=== PATIENT | female | born 1935 | race Caucasian/White ===

== ENCOUNTER 2018-08-31 16:54 | Inpatient (IN) | payer BC, MEDICARE ==
[~2018-08-31] VITALS: Ht 162.6 cm; Wt 70.3 kg
--- NOTE | 2018-08-31 17:22 | PHYS DOC ---
Past History Past Medical History: Anxiety, Hypothyroid Additional Past Surgical Histo: cochlear implant Smoking: Non-smoker Alcohol Use: None Drug Use: None Adult General Chief Complaint Chief Complaint: PSYCH EVALUATION HPI HPI Patient is a 83-year-old female here for medical clearance due to change in behavior over the past 6 months. Increasingly fearful during that time. Over the past month or so she is started hearing voices telling her to strep off all of her clothes and lay on the floor, where her finds her face down. There is no suicidal or homicidal ideation. The voices are not telling her to hurt herself or anyone else. There has been no recent changes in medications. Patient does have a history of anxiety. She also has had waxing and waning headaches during these past 6 months without any previous imaging. She usually takes Tylenol to help with these headaches. She reports her most recent headache started on the car ride to the hospital. There has been no change in vision, no nausea or vomiting with these headaches.[] Review of Systems Review of Systems Constitutional: Denies fever or chills [] Eyes: Denies change in visual acuity, redness, or eye pain [] HENT: Denies nasal congestion or sore throat [] Respiratory: Denies cough or shortness of breath [] Cardiovascular: No chest pain or palpitations[] GI: Denies abdominal pain, nausea, vomiting, bloody stools or diarrhea [] : Denies dysuria or hematuria [] Musculoskeletal: Denies back pain or joint pain [] Integument: Denies rash or skin lesions [] Neurologic: Denies focal weakness or sensory changes [] Endocrine: Denies polyuria or polydipsia [] All other systems were reviewed and found to be within normal limits, except as documented in this note. Physical Exam Physical Exam Constitutional: Well developed, well nourished, no acute distress, non-toxic appearance. [] HENT: Normocephalic, atraumatic, bilateral external ears normal, oropharynx moist, no oral exudates, nose normal. [] Eyes: PERRLA, EOMI, conjunctiva normal, no discharge. [] Neck: Normal range of motion, no tenderness, supple, no stridor. [] Cardiovascular:Heart rate regular rhythm, no murmur [] Lungs & Thorax: Bilateral breath sounds clear to auscultation [] Abdomen: Bowel sounds normal, soft, no tenderness, no masses, no pulsatile masses. [] Skin: Warm, dry, no erythema, no rash. [] Back: No tenderness, no CVA tenderness. [] Extremities: No tenderness, no cyanosis, no clubbing, ROM intact, no edema. [] Neurologic: Alert and oriented X 3, normal motor function, normal sensory function, no focal deficits noted. [] Psychologic: Affect flat, mood normal. [] EKG EKG EKG shows a sinus rhythm at 59 bpm, right superior axis at -172, QTC 410 ms, no old EKG available for comparison, no ST elevations, interpreted by me at 1725.[] Radiology/Procedures Radiology/Procedures INDICATION: HEADACHE, ALTERED MENTAL STATUS COMPARISON: None. TECHNIQUE: Axial CT images obtained through the head. One or more of the following individualized dose reduction techniques were utilized for this examination: 1. Automated exposure control; 2. Adjustment of the mA and/or kV according to patient size; 3. Use of iterative reconstruction technique. FINDINGS: Large amount of artifact through the brain secondary to patient's implanted device. This makes portions of the brain nondiagnostic. No midline shift. Suprasellar cistern is not effaced. Ventricles and sulci are prominent which can be seen with age-related volume loss. Scattered foci of low density of white matter. A definite hemorrhage is not seen however portions the brain are not visualized. IMPRESSION: 1. Portions of the brain are obscured secondary to the patient's implantable device at left ear however a definite acute hemorrhage is not seen in visualized portions. 2. Low-density seen within the white matter. Nonspecific but can be seen with chronic small vessel ischemic disease.[] Course & Med Decision Making Course & Med Decision Making Pertinent Labs and Imaging studies reviewed. (See chart for details) ED course: Patient arrived, was placed in bed, and tolerated exam well. Explained to patient and family that we were doing medical clearance for patient to be able to be cared for in [facility]. They understood this. Patient was transported to and from [place] with any complications. Patient care endorsed to the oncoming physician at 1800 with laboratory testing pending. [] Dragon Disclaimer Dragon Disclaimer This electronic medical record was generated, in whole or in part, using a voice recognition dictation system. Departure Departure: Impression: Primary Impression: Under care of mental health team Disposition: ADMITTED INPATIENT Admitting Physician: Other Condition: IMPROVED Referrals: NON,STAFF (PCP) MARIAMA CRENSHAW DO Aug 31, 2018 17:22
[2018-08-31] MEDS ORDERED: ACETAMINOPHEN 500 MG TABLET PO ONE (17:30)
[2018-08-31 17:31] LABS: BACTERIA,URINE FEW /HPF (0-FEW); BILIRUBIN,URINE NEG (NEG); CLARITY,URINE CLEAR; COLOR,URINE YELLOW; GLUCOSE,URINE NEG (NEG); NITRITE,URINE NEG (NEG); RBC,URINE OCC /HPF (0-2); SQUAMOUS EPITHELIAL CELL,UR FEW /LPF; UROBILINOGEN,URINE 0.2 mg/dL (0.2 mg/dL)
[2018-08-31 17:36] LABS: BASO # 0.1 x10^3/uL (0.0-0.2); BASO % 1 % (0-3); EOS % 1 % (0-3); HEMATOCRIT 37.1 % (36.0-47.0); HEMOGLOBIN 12.6 g/dL (12.0-15.5); LYMPH # 1.4 x10^3/uL (1.0-4.8); LYMPH % 25 % (24-48); MEAN CORPUSCULAR HEMOGLOBIN 32 pg (25-35); MEAN CORPUSCULAR HGB CONC 34 g/dL (31-37); MEAN CORPUSCULAR VOLUME 95 fL (79-100); MONO # 0.6 x10^3/uL (0.0-1.1); MONO % 10 % (0-9); NEUT # 3.5 x10^3uL (1.8-7.7); NEUT % 62 % (31-73); PLATELET COUNT 170 x10^3/uL (140-400); RED BLOOD COUNT 3.91 x10^6/uL (3.50-5.40); RED CELL DISTRIBUTION WIDTH 16.2 % (11.5-14.5); WHITE BLOOD COUNT 5.6 x10^3/uL (4.0-11.0)
[2018-08-31 17:51] LABS: ALBUMIN 3.4 g/dL (3.4-5.0); ALBUMIN/GLOBULIN RATIO 0.9 (1.0-1.7); CALCIUM 8.7 mg/dL (8.5-10.1); CREATININE 1.3 mg/dL (0.6-1.0); GFR 39.3; MAGNESIUM 1.9 mg/dL (1.8-2.4); POTASSIUM 3.9 mmol/L (3.5-5.1); TOTAL BILIRUBIN 0.5 mg/dL (0.2-1.0); TOTAL PROTEIN 7.4 g/dL (6.4-8.2)
--- NOTE | 2018-08-31 18:00 | RAD ---
INDICATION: HEADACHE, ALTERED MENTAL STATUS COMPARISON: None. TECHNIQUE: Axial CT images obtained through the head. One or more of the following individualized dose reduction techniques were utilized for this examination: 1. Automated exposure control; 2. Adjustment of the mA and/or kV according to patient size; 3. Use of iterative reconstruction technique. FINDINGS: Large amount of artifact through the brain secondary to patient's implanted device. This makes portions of the brain nondiagnostic. No midline shift. Suprasellar cistern is not effaced. Ventricles and sulci are prominent which can be seen with age-related volume loss. Scattered foci of low density of white matter. A definite hemorrhage is not seen however portions the brain are not visualized. IMPRESSION: 1. Portions of the brain are obscured secondary to the patient's implantable device at left ear however a definite acute hemorrhage is not seen in visualized portions. 2. Low-density seen within the white matter. Nonspecific but can be seen with chronic small vessel ischemic disease. Electronically signed by: Mikhail Holley MD (08/31/2018 5:57 PM) [facility]
--- NOTE | 2018-08-31 18:14 | EKG ---
[address] [address] Test Date: 2018-08-31 Test Time: 17:23:56 Pat Name: ALHAJI MACIAS Department: Room: Gender: F [facility] Worker: : 1935 Requested By: MARIAMA CRENSHAW Order Number: [id number] Reading MD: Gama Lund MD Measurements Intervals [place] Rate: 59 P: VA: QRS: -172 QRSD: 76 T: 172 QT: 414 QTc: 410 Interpretive Statements SR LIMB LEAD MISPLACEMENT Electronically Signed On 09-11-2018 10:58:43 CDT by Gama Lund MD
[2018-08-31 19:19] VITALS: BP 126/72
[2018-08-31] MEDS ORDERED: ACETAMINOPHEN 325 MG TABLET PO PRN (19:45)
[2018-08-31] MEDS ORDERED: METHYL SALICYLATE/MENTHOL TOPICAL OINTMENT 29GM TUBE. TP PRN (19:45)
[2018-08-31] MEDS ORDERED: MAG HYDROX/AL HYDROX/SIMETH 30 ML ORAL.SUSP PO PRN (19:45)
[2018-08-31] MEDS ORDERED: MAGNESIUM HYDROXIDE 2,400 MG/30 ML ORAL.SUSP. PO PRN (19:45)
[2018-08-31] MEDS ORDERED: OMEP20CA9 PO (21:33)
[2018-08-31] MEDS ORDERED: DIPH1TAB PO (21:33)
[2018-08-31] MEDS ORDERED: ALPR0.254 PO (21:33)
[2018-08-31] MEDS ORDERED: PRAV40TA2 PO (21:33)
[2018-08-31] MEDS ORDERED: AMOX500C PO (21:33)
[2018-08-31] MEDS ORDERED: VIT1CAPS12 PO (21:33)
[2018-08-31] MEDS ORDERED: POTA20TA4 PO (21:33)
[2018-08-31] MEDS ORDERED: BENA5TAB2 PO (21:33)
[2018-08-31] MEDS ORDERED: TRAZ-120 PO (21:33)
[2018-08-31] MEDS ORDERED: OLAN5TAB9 PO (21:33)
[2018-08-31] MEDS ORDERED: CALC500O PO (21:33)
[2018-08-31] MEDS ORDERED: METO50TA29 PO (21:33)
[2018-08-31] MEDS ORDERED: LEVO75TA PO (21:33)
[2018-08-31] MEDS ORDERED: DIPHENOXYLATE/ATROPINE TABLET. PO PRN (22:15)
--- NOTE | 2018-08-31 23:01 | PDOC ---
Exam Note: Jeremy Note: Please also refer to the separate dictated note~for this date of service dictated separately. Discussed the patient with Nursing staff reviewed the chart.~Reviewed interim history and current functioning. Reviewed vital signs,~ Labs/ Radiology~and current medications noted below. Continue current treatment with the changes noted in the dictated addendum note Assessment: Vital Signs: Vital Signs Date Time Temp Pulse Resp B/P (MAP) Pulse Ox O2 Delivery O2 Flow Rate FiO2 08/31/18 19:19 98.0 57 16 126/72 (90) 99 Room Air Labs: Laboratory Tests Test 08/31/18 16:55 08/31/18 17:07 Urine Collection Type Unknown Urine Color Yellow Urine Clarity Clear Urine pH 6.0 Urine Specific [place] 1.025 Urine Protein Neg (NEG-TRACE) Urine Glucose (UA) Neg mg/dL (NEG) Urine Ketones (Stick) Neg mg/dL (NEG) Urine Blood Neg (NEG) Urine Nitrite Neg (NEG) Urine Bilirubin Neg (NEG) Urine Urobilinogen Dipstick 0.2 mg/dL (0.2 mg/dL) Urine Leukocyte Esterase Trace (NEG) Urine RBC Occ /HPF (0-2) Urine WBC 5-10 /HPF (0-4) Urine Squamous Epithelial Cells Few /LPF Urine Bacteria Few /HPF (0-FEW) Urine Mucus Slight /LPF White Blood Count 5.6 x10^3/uL (4.0-11.0) Red Blood Count 3.91 x10^6/uL (3.50-5.40) Hemoglobin 12.6 g/dL (12.0-15.5) Hematocrit 37.1 % (36.0-47.0) Mean Corpuscular Volume 95 fL (79-100) Mean Corpuscular Hemoglobin 32 pg (25-35) Mean Corpuscular Hemoglobin Concent 34 g/dL (31-37) Red Cell Distribution Width 16.2 % (11.5-14.5) H Platelet Count 170 x10^3/uL (140-400) Neutrophils (%) (Auto) 62 % (31-73) Lymphocytes (%) (Auto) 25 % (24-48) Monocytes (%) (Auto) 10 % (0-9) H Eosinophils (%) (Auto) 1 % (0-3) Basophils (%) (Auto) 1 % (0-3) Neutrophils # (Auto) 3.5 x10^3uL (1.8-7.7) Lymphocytes # (Auto) 1.4 x10^3/uL (1.0-4.8) Monocytes # (Auto) 0.6 x10^3/uL (0.0-1.1) Eosinophils # (Auto) 0.0 x10^3/uL (0.0-0.7) Basophils # (Auto) 0.1 x10^3/uL (0.0-0.2) Sodium Level 140 mmol/L (136-145) Potassium Level 3.9 mmol/L (3.5-5.1) Chloride Level 106 mmol/L (98-107) Carbon Dioxide Level 27 mmol/L (21-32) Anion Gap 7 (6-14) Blood Urea Nitrogen 12 mg/dL (7-20) Creatinine 1.3 mg/dL (0.6-1.0) H Estimated GFR (Cockcroft-Gault) 39.3 BUN/Creatinine Ratio 9 (6-20) Glucose Level 106 mg/dL (70-99) H Calcium Level 8.7 mg/dL (8.5-10.1) Magnesium Level 1.9 mg/dL (1.8-2.4) Total Bilirubin 0.5 mg/dL (0.2-1.0) Aspartate Amino Transferase (AST) 31 U/L (15-37) Alanine Aminotransferase (ALT) 27 U/L (14-59) Alkaline Phosphatase 88 U/L (46-116) Total Protein 7.4 g/dL (6.4-8.2) Albumin 3.4 g/dL (3.4-5.0) Albumin/Globulin Ratio 0.9 (1.0-1.7) L Current Medications: Meds: Current Medications Acetaminophen (Tylenol) 500 mg 1X ONCE PO Last administered on 08/31/18at 17:30 ; Start 08/31/18 at 17:30; Stop 08/31/18 at 17:37; Status DC Acetaminophen (Tylenol) 650 mg PRN Q6HRS PRN PO PAIN / TEMP; Start 08/31/18 at 19:45 Multi-Ingredient Ointment (Analgesic [place]) 1 duke PRN QID PRN TP MUSCLE PAIN; Start 08/31/18 at 19:45 Al Hydroxide/Mg Hydroxide (Mylanta Plus Xs) 15 ml PRN AFTMEALHC PRN PO DYSPEPSIA; Start 08/31/18 at 19:45 Magnesium Hydroxide (Milk Of Magnesia) 2,400 mg PRN QHS PRN PO CONSTIPATION; Start 08/31/18 at 19:45 Alprazolam (Xanax) 0.25 mg PRN DAILY PRN PO ANXIETY / AGITATION; Start at 22:00 Olanzapine (ZyPREXA) 5 mg BID PO ; Start 09/01/18 at 09:00 Trazodone HCl (Desyrel) 50 mg QHS PO ; Start 09/01/18 at 21:00 Levothyroxine Sodium (Synthroid) 75 mcg DAILYAC PO ; Start 09/01/18 at 07:30 Potassium Chloride (Klor-Con) 20 meq DAILYWBKFT PO ; Start 09/01/18 at 08:00 Non-Formulary Medication (Amoxicillin ) 500 mg TID PO ; Start 09/01/18 at 09:00 ; Stop 09/01/18 at 09:00; Status DC Lisinopril (Prinivil) 5 mg DAILY PO ; Start 09/01/18 at 09:00 Calcium Carbonate/ Glycine (Tums) 1,250 mg DAILYWSUP PO ; Start 09/01/18 at 17: 00 Diphenoxylate HCl/ Atropine (Lomotil) 1 tab PRN QID PRN PO DIARRHEA; Start 04/10 at 22:15 Metoprolol Succinate (Toprol Xl) 50 mg BID PO ; Start 09/01/18 at 09:00 Pantoprazole Sodium (Protonix) 40 mg DAILYAC PO ; Start 09/01/18 at 07:30 Pravastatin Sodium (Pravachol) 40 mg QHS PO ; Start 09/01/18 at 21:00 Multivitamins/ Minerals (I-Delgado) 1 tab DAILY PO ; Start 09/01/18 at 09:00 Active Scripts Active Reported Preservision Areds Softgel (Vit A/Vit C/Vit E/Zinc/Copper) 1 Each Capsule 1 Each PO DAILY Pravastatin Sodium 40 Mg Tablet 40 Mg PO HS Klor-Con M20 (Potassium Chloride) 20 Meq Tab.er.prt 20 Meq PO DAILY Omeprazole 20 Mg Capsule.dr 20 Mg PO DAILY Metoprolol Succinate ( Xl ) (Metoprolol Succinate) 50 Mg Tab.er.24h 50 Mg PO BID Synthroid (Levothyroxine Sodium) 75 Mcg Tablet 75 Mcg PO DAILYAC Lomotil Tablet (Diphenoxylate Hcl/Atropine) 1 Each Tablet 1 Each PO PRN QID PRN Amoxicillin 500 Mg Capsule 500 Mg PO TID Calcium Carbonate 500 Mg/5 Ml Oral.susp 1,250 Mg PO DAILYWSUP Benazepril Hcl 5 Mg Tablet 5 Mg PO DAILY Trazodone Hcl 50 Mg Tablet 50 Mg PO QHS Olanzapine 5 Mg Tablet 5 Mg PO BID Alprazolam 0.25 Mg Tablet 0.25 Mg PO DAILY PRN I have reviewed the current psychotropics carefully including drug interactions. Risk benefit ratio favors no change other than as noted in my dictated progress note. Diagnosis: Problems: (1) Under care of mental health team JULIAN OLMEDO MD Aug 31, 2018 23:01
[2018-09-01 05:57] VITALS: BP 129/78
[2018-09-01] MEDS: POTASSIUM CHLORIDE 20 MEQ TABLET.ER. PO SCH (08:11)
[2018-09-01] MEDS: LEVOTHYROXINE 75 MCG TABLET PO SCH (08:11)
[2018-09-01] MEDS: PANTOPRAZOLE 40 MG TABLET. PO SCH (08:11)
[2018-09-01] MEDS: MULTIVITAMIN I-VITE TABLET. PO SCH (08:12)
[2018-09-01] MEDS: LISINOPRIL 5 MG TABLET. PO SCH (08:13)
[2018-09-01] MEDS: METOPROLOL SUCC 24HR ER 50 MG TAB.ER.24H. PO SCH ×2 (08:14→20:08)
[2018-09-01] MEDS: OLANZapine 5 MG TABLET PO SCH ×2 (08:14→20:08)
[2018-09-01] MEDS ORDERED: NON FORMULARY ITEM (Amoxicillin 500 MG) PO SCH (09:00)
[2018-09-01 16:05] VITALS: BP 120/79
[2018-09-01] MEDS: CALCIUM CARBONATE 500 MG TAB.CHEW PO SCH (17:00)
[2018-09-01] MEDS: traZODone 50 MG TABLET. PO SCH (20:09)
[2018-09-01] MEDS: PRAVASTATIN 20 MG TABLET. PO SCH (20:10)
--- NOTE | 2018-09-01 22:50 | HP ---
ADMIT DATE: 09/01/2018 PSYCHIATRIC ADMISSION HISTORY/EVALUATION This note covers elements not covered in my initial note of 09/01/2018. IDENTIFYING DATA: The patient is an 83-year-old female referred by the patient's primary care physician, Dr. Merino in [place], [place] on account of the patient's worsening confusion, active hallucinations that at turning into command hallucinations, telling her to do things like "take pills'' and to ''swallow her rings.'' The patient was seen individually, discussed with nursing staff, reviewed the chart, discussed with nursing staff on 08/31/2018 and with hall coordinator, Tamika Scherer as well On 08/31/2018 as part of the admission referral from the primary care physician. CHIEF COMPLAINT: ''Yes, I hear voices. Sometimes they are lady. Sometimes they are men. I recognized some of them. They tell me to do things. My memory is all right. No, I don't know who the president is. I don't know the year." HISTORY OF PRESENT ILLNESS: The patient has a history of dementia, Alzheimer's vascular type. She has been increasingly paranoid, delusional, recently unmanageable at the home resulting in this referral by her primary care physician. She did have a recent UTI, was at [facility] in [place] from 08/22/2018-08/25/2018 and family are looking at possible placement at the [facility] in [place], [place], but given the patient's active psychotic symptoms with command hallucinations, they are unable to accept till she is stabilized. The patient states she has been having the worsening hallucinations for the past 1 month, but veracity of this will have to be confirmed with the family. She has had marked insomnia. Some of the voices are telling her that they are going to push her down the stairs or steam the baby. She is starting to act out on the voices, telling her to do things like "take pills" or ''swallow her rings.'' Attempts have been made to adjust her psychotropics including Zyprexa and Xanax. She has failed all of this resulting in this referral. She does have a history of mood swings, but not okay, past history of bipolar disorder. The patient is being admitted by COLLEEN Harding, who is her spouse. PAST PSYCHIATRIC HISTORY: As above. No alcohol or drug abuse history. PAST MEDICAL HISTORY: Hypertension, hyperlipidemia, hypothyroidism, status post cerebrovascular accident. She does have cochlear implant, history of irritable bowel syndrome, hard of hearing. DIET: Regular. Takes medications whole. Ambulates ad radha. On the night of 08/31/2018, 09/01/2018, the patient slept 6-1/4 hours. She remained wandering, stripped her clothes off at night, crawling on the floor, quite psychotic, disorganized. DRUG ALLERGIES: Negative. FAMILY HISTORY: Noncontributory. SOCIAL HISTORY: No alcohol, drug abuse, physical, sexual or elder abuse history is noted. She is not known to be a perpetrator. REACTION TO HOSPITALIZATION: The patient is accepting of it. ASSETS: Supportive family, looking for intermediate placement. MENTAL STATUS EXAM: The patient was seen individually morning of 09/01/2018. Met with her at length in her room. She is oriented to herself, lying in bed. Insight, judgment, recent and remote memory, attention, concentration, fund of knowledge poor, consistent with her diagnoses. IMPRESSION: Major neurocognitive disorder, Alzheimer, vascular with delusion, depression, behavioral disturbance; anxiety disorder, unspecified; impulse control disorder, unspecified; status post urinary tract infection. Rest unchanged from above. PLAN: Admit to Geropsychiatry Unit at [facility]. I will see the patient daily individually from a psychiatric standpoint, medical followup with Dr. Dutton. Dr. Escalona will cover for me during my absence. We will continue her current psychotropics, observe her baseline, consider changing Zyprexa to Risperdal for marked psychotic symptoms. We will get past psychiatric records from [facility] where she was hospitalized from a psychiatric standpoint 6 years ago in [place]. Rest will be determined after initial assessment. MAN Kathy OLMEDO MD DR: PREETI/thomas JOB#: [id number] / [id number]
--- NOTE | 2018-09-01 22:53 | PDOC ---
Exam Note: Jeremy Note: Please also refer to the separate dictated note~for this date of service dictated separately.~Patient seen individually. Discussed the patient with Nursing staff reviewed the chart.~Reviewed interim history and current functioning. Reviewed vital signs,~Labs/ Radiology~and current medications noted below. Continue current treatment with the changes noted in the dictated addendum note Assessment: Vital Signs: Vital Signs Date Time Temp Pulse Resp B/P (MAP) Pulse Ox O2 Delivery O2 Flow Rate FiO2 09/01/18 20:08 85 120/79 09/01/18 16:05 97.5 20 98 08/31/18 19:19 Room Air I&O Intake and Output 09/01/18 07:00 Intake Total 420 ml Balance 420 ml Intake Oral 420 ml # Voids 1 Labs: Laboratory Tests Test 09/01/18 13:35 Erythrocyte Sedimentation Rate 28 (0-25) H C-Reactive Protein 1.1 mg/L (0-3.3) Current Medications: Meds: Current Medications Acetaminophen (Tylenol) 500 mg 1X ONCE PO Last administered on 08/31/18at 17:30 ; Start 08/31/18 at 17:30; Stop 08/31/18 at 17:37; Status DC Acetaminophen (Tylenol) 650 mg PRN Q6HRS PRN PO PAIN / TEMP; Start 08/31/18 at 19:45 Multi-Ingredient Ointment (Analgesic [place]) 1 duke PRN QID PRN TP MUSCLE PAIN; Start 08/31/18 at 19:45 Al Hydroxide/Mg Hydroxide (Mylanta Plus Xs) 15 ml PRN AFTMEALHC PRN PO DYSPEPSIA; Start 08/31/18 at 19:45 Magnesium Hydroxide (Milk Of Magnesia) 2,400 mg PRN QHS PRN PO CONSTIPATION; Start 08/31/18 at 19:45 Alprazolam (Xanax) 0.25 mg PRN DAILY PRN PO ANXIETY / AGITATION; Start at 22:00 Olanzapine (ZyPREXA) 5 mg BID PO Last administered on 09/01/18at 20:08; Start at 09:00 Trazodone HCl (Desyrel) 50 mg QHS PO Last administered on 09/01/18at 20:09; Start 09/01/18 at 21:00 Levothyroxine Sodium (Synthroid) 75 mcg DAILYAC PO Last administered on 08:11; Start 09/01/18 at 07:30 Potassium Chloride (Klor-Con) 20 meq DAILYWBKFT PO Last administered on at 08:11; Start 09/01/18 at 08:00 Non-Formulary Medication (Amoxicillin ) 500 mg TID PO ; Start 09/01/18 at 09:00 ; Stop 09/01/18 at 09:00; Status DC Lisinopril (Prinivil) 5 mg DAILY PO Last administered on 09/01/18at 08:13; Start 09/01/18 at 09:00 Calcium Carbonate/ Glycine (Tums) 1,250 mg DAILYWSUP PO ; Start 09/01/18 at 17: 00 Diphenoxylate HCl/ Atropine (Lomotil) 1 tab PRN QID PRN PO DIARRHEA; Start 04/10 at 22:15 Metoprolol Succinate (Toprol Xl) 50 mg BID PO Last administered on 09/01/18at 20 :08; Start 09/01/18 at 09:00 Pantoprazole Sodium (Protonix) 40 mg DAILYAC PO Last administered on 09/01/18 08:11; Start 09/01/18 at 07:30 Pravastatin Sodium (Pravachol) 40 mg QHS PO Last administered on 09/01/18at 20: 10; Start 09/01/18 at 21:00 Multivitamins/ Minerals (I-Delgado) 1 tab DAILY PO Last administered on 09/01/18 08:12; Start 09/01/18 at 09:00 Active Scripts Active Reported Preservision Areds Softgel (Vit A/Vit C/Vit E/Zinc/Copper) 1 Each Capsule 1 Each PO DAILY Pravastatin Sodium 40 Mg Tablet 40 Mg PO HS Klor-Con M20 (Potassium Chloride) 20 Meq Tab.er.prt 20 Meq PO DAILY Omeprazole 20 Mg Capsule.dr 20 Mg PO DAILY Metoprolol Succinate ( Xl ) (Metoprolol Succinate) 50 Mg Tab.er.24h 50 Mg PO BID Synthroid (Levothyroxine Sodium) 75 Mcg Tablet 75 Mcg PO DAILYAC Lomotil Tablet (Diphenoxylate Hcl/Atropine) 1 Each Tablet 1 Each PO PRN QID PRN Amoxicillin 500 Mg Capsule 500 Mg PO TID Calcium Carbonate 500 Mg/5 Ml Oral.susp 1,250 Mg PO DAILYWSUP Benazepril Hcl 5 Mg Tablet 5 Mg PO DAILY Trazodone Hcl 50 Mg Tablet 50 Mg PO QHS Olanzapine 5 Mg Tablet 5 Mg PO BID Alprazolam 0.25 Mg Tablet 0.25 Mg PO DAILY PRN I have reviewed the current psychotropics carefully including drug interactions. Risk benefit ratio favors no change other than as noted in my dictated progress note. Diagnosis: Problems: (1) Under care of mental health team (2) Anxiety disorder (3) Dementia in Alzheimer's disease with delusions (4) Dementia in Alzheimer's disease with depression (5) Dementia, vascular, with delusions (6) Dementia, vascular, with depression (7) Impulse control disorder (8) Psychosis, atypical (9) Major depressive disorder, recurrent episode JULIAN OLMEDO MD Sep 01, 2018 22:53
[2018-09-01 23:10] LABS: HEMOGLOBIN A1C 5.3 % (4.8-5.6)
[2018-09-02] MEDS: ALPRAZolam 0.25 MG TABLET PO PRN ×2 (00:41→22:32)
[2018-09-02 06:26] VITALS: BP 140/70
[2018-09-02] MEDS: POTASSIUM CHLORIDE 20 MEQ TABLET.ER. PO SCH (08:00)
[2018-09-02] MEDS: PANTOPRAZOLE 40 MG TABLET. PO SCH (08:43)
[2018-09-02] MEDS: MULTIVITAMIN I-VITE TABLET. PO SCH (08:43)
[2018-09-02] MEDS: LEVOTHYROXINE 75 MCG TABLET PO SCH (08:44)
[2018-09-02] MEDS: OLANZapine 5 MG TABLET PO SCH ×2 (08:44→20:00)
[2018-09-02] MEDS: LISINOPRIL 5 MG TABLET. PO SCH (08:44)
[2018-09-02] MEDS: METOPROLOL SUCC 24HR ER 50 MG TAB.ER.24H. PO SCH ×2 (08:44→19:59)
--- NOTE | 2018-09-02 15:23 | CONS ---
DATE OF CONSULTATION: 09/01/2018 REASON FOR CONSULTATION: Medical management. HISTORY OF PRESENT ILLNESS: The patient is an 83-year-old female patient, who was admitted through the Emergency Room of [facility] as she apparently has been increasingly fearful over the last 6 months. She apparently started hearing voices telling her to strip off all her clothes and lay on the floor. Her found her face down. There is no suicidal or homicidal ideation. The voices are not telling her to hurt herself or anyone else. There has been no recent change in medication. The patient does have a history of anxiety and had had waxing and waning headaches in the past 6 months without any obvious previous imaging. She usually takes Tylenol to help with these headaches. She reports her most recent headache started on the car ride to the hospital. There has been no change in vision, no nausea, no vomiting with these headaches. She was [facility] for inpatient psychiatric stabilization. PAST MEDICAL HISTORY: Significant for hypertension, hyperlipidemia, hypothyroidism, and chronic diarrhea. PAST SURGICAL HISTORY: Unremarkable. ALLERGIES: She has no known drug allergies. MEDICATIONS: She is currently on following medications: She is on pravastatin 40 mg at bedtime, trazodone 50 mg at bedtime, calcium carbonate with glycine 1250 daily with supper, multivitamin with mineral 1 tablet once a day, metoprolol succinate 50 mg twice a day, lisinopril 5 mg once a day, olanzapine for Zyprexa 5 mg twice a day, potassium chloride 20 mEq daily with breakfast, Protonix 40 mg daily, levothyroxine sodium 75 mcg once a day, diphenoxylate/atropine for Lomotil one tablet 4 times a day, alprazolam 0.25 mg daily. She is on milk of magnesia 30 mL p.o. daily p.r.n. for constipation, and Tylenol 650 mg every 6 hours as needed. FAMILY HISTORY: Noncontributory. SOCIAL HISTORY: She lives with her . She apparently does not smoke, drink alcohol or use any recreational drugs. REVIEW OF SYSTEMS: As per history of present illness. PHYSICAL EXAMINATION GENERAL: When I examined her, she looked well and was clearly in no apparent respiratory distress, slightly pale, but no jaundice, cyanosis, or thyromegaly. No jugular venous distension. No limb edema. VITAL SIGNS: Her heart rate was 62, blood pressure was 126/72, temperature was 98, respiratory rate was 16 and oxygen saturation was 99% on room air. HEAD, EYES, EARS, NOSE AND THROAT: She is normocephalic, atraumatic. NECK: Supple. HEART: Showed normal first and second heart sounds. No gallop, rub or murmur. CHEST: Clear to auscultation. No crepitation or rhonchi. ABDOMEN: Distended, soft, nontender. NEUROLOGIC: She is very hard of hearing. 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 All her other cranial nerves are intact. EXTREMITIES: She moves extremities without difficulty. She ambulates without assistance or assistive devices. LABORATORY DATA: Showed a white cell count 5600, hemoglobin 12.6, hematocrit 37.1, MCV 95, and platelet count of 170,000. Her chemistry showed a serum sodium 140, potassium 3.9, chloride 106, bicarbonate 27, anion gap of 7, BUN 12, creatinine was 1.3, estimated GFR was 39 mL per minute. Her glucose was 106, calcium was 8.7, magnesium was 1.9. Total bilirubin, AST, ALT, alkaline phosphatase were normal. Total protein was 7.4, albumin was 3.4. Urinalysis showed the urine was yellow, clear with a pH of 6, specific gravity of 1.025. The urine was negative for protein, glucose, ketones, blood, nitrite and leukocyte esterase. There are occasional rbc's, 5-10 wbc's, and very few bacteria. IMPRESSION AND PLAN: In summary, this is an 83-year-old female patient, who was admitted with a recent change in her behavior started about 6 months ago that she has been increasingly fearful during this time. She started hearing voices telling her to strip off all her clothes and lay on the floor, where her found her face down. There were no suicidal or homicidal ideations. The voices were not telling her to hurt herself or anyone else. There has been no recent change in her medication. She does have a history of anxiety and also waxing and waning headaches that has been going on for the last [address] We did a CT scan of the head, which basically showed that there are large amount of artifacts throughout the film secondary to the patient's implanted device. This makes portion of the brain nondiagnostic; however, there is no midline shift, suprasellar cistern is not effaced, ventricles and sulci are prominent, which can be seen by age-related volume loss. She has scattered foci of low density white matter, definite hemorrhage is not seen; however, portions of the brain are not visualized. Medically, the patient has multiple medical problems including hypertension, hyperlipidemia. She has also hypothyroidism, gastroesophageal reflux disease and what seems to be chronic diarrhea. Given her headache and the lack of findings on her CT scan, I will arrange for her to check her sed rate and CRP to make sure that the chance of arthritis or polymyalgia rheumatica is not the cause of her headache. ROSEANNE PEDRO MD DR: BEN/thomas JOB#: [id number] / [id number]
[2018-09-02 16:04] VITALS: BP 143/59
[2018-09-02] MEDS: CALCIUM CARBONATE 500 MG TAB.CHEW PO SCH (16:22)
[2018-09-02] MEDS: traZODone 50 MG TABLET. PO SCH (19:59)
[2018-09-02] MEDS: PRAVASTATIN 20 MG TABLET. PO SCH (20:00)
--- NOTE | 2018-09-03 01:47 | PN ---
DATE: 09/02/2018 SUBJECTIVE: The patient was seen today. The patient continues to hear voices. Apparently, she gets so agitated easily and she has history of taking her clothes off. According to the family report, the patient always finds something if she is prevented from doing the undressing, she started swallowing objects. The patient also has severe hearing loss. The patient apparently also is hard of hearing. The patient continues to hear voices. OBSERVATION: VITAL SIGNS: Temperature 97.7, blood pressure 140/70, pulse 74, respirations 18, O2 sat 96%. Slept only about 2-1/2 hours last night. MEDICATIONS: Reviewed. Currently on trazodone 50 mg at night, olanzapine 5 mg b.i.d., and Xanax 0.25 mg daily p.r.n. The patient's lab reviewed. ESR 28. Triglycerides 220, LDL 74, HDL 62, glucose 106, creatinine 1.3. 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 We will continue to monitor her behaviors and make necessary changes with regards to medications. RASTA RICK MD DR: DELILAH/thomas JOB#: [id number] / [id number]
[2018-09-03 05:44] VITALS: BP 121/69
[2018-09-03] MEDS: PANTOPRAZOLE 40 MG TABLET. PO SCH (08:10)
[2018-09-03] MEDS: LEVOTHYROXINE 75 MCG TABLET PO SCH (08:11)
[2018-09-03] MEDS: OLANZapine 5 MG TABLET PO SCH ×2 (09:07→19:51)
[2018-09-03] MEDS: LISINOPRIL 5 MG TABLET. PO SCH (09:07)
[2018-09-03] MEDS: POTASSIUM CHLORIDE 20 MEQ TABLET.ER. PO SCH (09:07)
[2018-09-03] MEDS: METOPROLOL SUCC 24HR ER 50 MG TAB.ER.24H. PO SCH ×2 (09:07→19:51)
[2018-09-03] MEDS: MULTIVITAMIN I-VITE TABLET. PO SCH (09:07)
[2018-09-03] MEDS ORDERED: traZODone 50 MG TABLET. PO PRN (12:15)
[2018-09-03 16:16] VITALS: BP 123/80
[2018-09-03] MEDS: CALCIUM CARBONATE 500 MG TAB.CHEW PO SCH (17:13)
[2018-09-03] MEDS: PRAVASTATIN 20 MG TABLET. PO SCH (19:51)
[2018-09-03] MEDS: traZODone 50 MG TABLET. PO SCH (19:51)
--- NOTE | 2018-09-03 20:29 | PN ---
DATE: 09/03/2018 SUBJECTIVE: The patient was seen today, met with the staff, chart reviewed. Staff reports she continues to be delusional, hearing voices, but she did not try to remove her clothes today. Apparently, this has been a major problem with her according to the family. When she stopped from undressing, she indulges in other behaviors including swallowing objects. OBSERVATION: VITAL SIGNS: Temperature 98, blood pressure 121/69, pulse 58, respiration 18, O2 sat 97%. Slept about 5 hours last night. Appetite fair. MEDICATIONS: Reviewed. Currently on trazodone 50 mg at night, olanzapine 5 mg b.i.d., and Xanax 0.25 mg daily p.r.n. The patient's lab reviewed. The patient did not have any falls. No major complaints medically. ASSESSMENT: Major neurocognitive disorder, most likely Alzheimer's versus vascular with delusions, depression, behavioral disturbances. PLAN: To continue with the treatment. LENGTH OF STAY: 7-10 days. RASTA RICK MD DR: DELILAH/thomas JOB#: [id number] / [id number]
[2018-09-04 06:05] VITALS: BP 125/77
[2018-09-04] MEDS: LEVOTHYROXINE 75 MCG TABLET PO SCH (08:29)
[2018-09-04] MEDS: POTASSIUM CHLORIDE 20 MEQ TABLET.ER. PO SCH (08:29)
[2018-09-04] MEDS: PANTOPRAZOLE 40 MG TABLET. PO SCH (08:29)
[2018-09-04] MEDS: MULTIVITAMIN I-VITE TABLET. PO SCH (08:29)
[2018-09-04] MEDS: OLANZapine 5 MG TABLET PO SCH ×2 (08:29→20:12)
[2018-09-04] MEDS: LISINOPRIL 5 MG TABLET. PO SCH (08:30)
[2018-09-04] MEDS: METOPROLOL SUCC 24HR ER 50 MG TAB.ER.24H. PO SCH ×2 (08:30→20:40)
[2018-09-04 16:31] VITALS: BP 116/60
[2018-09-04] MEDS: CALCIUM CARBONATE 500 MG TAB.CHEW PO SCH (17:46)
[2018-09-04] MEDS: PRAVASTATIN 20 MG TABLET. PO SCH (20:12)
[2018-09-04] MEDS: traZODone 50 MG TABLET. PO SCH (20:12)
--- NOTE | 2018-09-05 00:47 | PN ---
DATE: 09/04/2018 SUBJECTIVE: The patient was seen today, met with the staff, chart reviewed. Staff reports no major problem except she has withdrawn, isolative. The patient is not exhibiting any overt psychotic symptoms at this time. OBSERVATION: VITAL SIGNS: Temperature 98, blood pressure 125/77, pulse 48, respirations 18, O2 sat 98%. Slept about 6 hours last night. The patient's appetite has improved. The patient continued to exhibit behavioral changes including try to remove her clothes, compulsive behaviors. CURRENT MEDICATIONS: Trazodone 50 mg at night, olanzapine 5 mg b.i.d., and Xanax 0.25 mg daily p.r.n. The patient's lab reviewed. The patient did not have any falls. No major medical issues. 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 PLAN: To continue with the treatment. LENGTH OF STAY: 5-7 days. RASTA RICK MD DR: DELILAH/thomas JOB#: [id number] / [id number]
[2018-09-05] MEDS: LISINOPRIL 5 MG TABLET. PO SCH (06:06)
[2018-09-05] MEDS: POTASSIUM CHLORIDE 20 MEQ TABLET.ER. PO SCH (06:06)
[2018-09-05] MEDS: OLANZapine 5 MG TABLET PO SCH ×2 (06:06→20:55)
[2018-09-05] MEDS: PANTOPRAZOLE 40 MG TABLET. PO SCH (06:06)
[2018-09-05] MEDS: LEVOTHYROXINE 75 MCG TABLET PO SCH (06:06)
[2018-09-05] MEDS: METOPROLOL SUCC 24HR ER 50 MG TAB.ER.24H. PO SCH ×2 (06:07→20:55)
[2018-09-05] MEDS: MULTIVITAMIN I-VITE TABLET. PO SCH (06:10)
[2018-09-05 06:21] VITALS: BP 125/76
[2018-09-05 15:55] VITALS: BP 130/76
[2018-09-05] MEDS: CALCIUM CARBONATE 500 MG TAB.CHEW PO SCH (16:19)
[2018-09-05] MEDS: traZODone 50 MG TABLET. PO SCH (20:55)
[2018-09-05] MEDS: ATORVASTATIN CALCIUM 10 MG TABLET. PO SCH (20:56)
--- NOTE | 2018-09-06 00:19 | PN ---
DATE: 09/05/2018 SUBJECTIVE: The patient was seen today, met with the staff, chart reviewed. She is still withdrawn, isolative. She is able to walk, continues to have hearing problems. OBSERVATION: VITAL SIGNS: Temperature 98.1, blood pressure 125/76, pulse 79, respirations 20, O2 sat 96%. Slept about 8 hours last night. The patient's appetite is improved. MEDICATIONS: The patient's current medications include trazodone 50 mg at night, olanzapine 5 mg b.i.d., and Xanax 0.25 mg daily p.r.n. The patient's lab reviewed. Currently, not exhibiting any major medical issues. 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 PLAN: To continue with the treatment. RASTA RICK MD DR: DELILAH/thomas JOB#: [id number] / [id number]
[2018-09-06] MEDS: LEVOTHYROXINE 75 MCG TABLET PO SCH (05:57)
[2018-09-06 06:10] VITALS: BP 148/57
[2018-09-06] MEDS: PANTOPRAZOLE 40 MG TABLET. PO SCH (07:51)
[2018-09-06] MEDS: LISINOPRIL 5 MG TABLET. PO SCH (07:52)
[2018-09-06] MEDS: POTASSIUM CHLORIDE 20 MEQ TABLET.ER. PO SCH (07:52)
[2018-09-06] MEDS: METOPROLOL SUCC 24HR ER 50 MG TAB.ER.24H. PO SCH ×2 (07:53→20:35)
[2018-09-06] MEDS: OLANZapine 5 MG TABLET PO SCH ×2 (07:53→20:35)
[2018-09-06] MEDS: MULTIVITAMIN I-VITE TABLET. PO SCH (07:54)
[2018-09-06 16:32] VITALS: BP 128/69
[2018-09-06] MEDS: CALCIUM CARBONATE 500 MG TAB.CHEW PO SCH (17:35)
[2018-09-06] MEDS: ATORVASTATIN CALCIUM 10 MG TABLET. PO SCH (20:35)
[2018-09-06] MEDS: traZODone 50 MG TABLET. PO SCH (20:35)
--- NOTE | 2018-09-07 01:06 | PN ---
DATE: 09/06/2018 SUBJECTIVE: The patient was seen today, met with the staff, chart reviewed, also covering for Dr. Zaman. The patient continues to withdraw. Able to interact on 1:1. Has some confusion at times. She knew the date, month and the year today. The patient also being forgetful at times. Staff also reports lately she has not removed her clothes. She is able to walk fairly steady. OBSERVATION: VITAL SIGNS: Temperature 97.4, blood pressure 148/67, pulse 79, respirations 16, O2 sat 96%. Slept about 7 hours last night. The patient's appetite is fair. The patient's visits her regularly. The patient denies of any medical problems except some hearing loss. 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 PLAN: To continue with the treatment. LENGTH OF STAY: 4-5 days. RASTA RICK MD DR: DELILAH/thomas JOB#: [id number] / [id number]
[2018-09-07 06:06] VITALS: BP 149/71
[2018-09-07] MEDS: LEVOTHYROXINE 75 MCG TABLET PO SCH (07:45)
[2018-09-07] MEDS: OLANZapine 5 MG TABLET PO SCH ×2 (07:45→19:38)
[2018-09-07] MEDS: PANTOPRAZOLE 40 MG TABLET. PO SCH (07:45)
[2018-09-07] MEDS: POTASSIUM CHLORIDE 20 MEQ TABLET.ER. PO SCH (07:45)
[2018-09-07] MEDS: LISINOPRIL 5 MG TABLET. PO SCH (07:46)
[2018-09-07] MEDS: METOPROLOL SUCC 24HR ER 50 MG TAB.ER.24H. PO SCH ×2 (07:46→21:00)
[2018-09-07] MEDS: MULTIVITAMIN I-VITE TABLET. PO SCH (07:48)
[2018-09-07 11:11] LABS: BASO # 0.1 x10^3/uL (0.0-0.2); BASO % 1 % (0-3); EOS % 0 % (0-3); LYMPH # 1.1 x10^3/uL (1.0-4.8); LYMPH % 20 % (24-48); MEAN CORPUSCULAR HEMOGLOBIN 33 pg (25-35); MEAN CORPUSCULAR HGB CONC 34 g/dL (31-37); MEAN CORPUSCULAR VOLUME 95 fL (79-100); MONO # 0.4 x10^3/uL (0.0-1.1); MONO % 8 % (0-9); NEUT # 3.8 x10^3uL (1.8-7.7); NEUT % 70 % (31-73); PLATELET COUNT 157 x10^3/uL (140-400); RED BLOOD COUNT 3.68 x10^6/uL (3.50-5.40); WHITE BLOOD COUNT 5.4 x10^3/uL (4.0-11.0)
[2018-09-07 11:24] LABS: ALBUMIN/GLOBULIN RATIO 0.8 (1.0-1.7); CALCIUM 8.7 mg/dL (8.5-10.1); CREATININE 1.2 mg/dL (0.6-1.0); GFR 43.1; POTASSIUM 4.1 mmol/L (3.5-5.1); TOTAL BILIRUBIN 0.6 mg/dL (0.2-1.0); TOTAL PROTEIN 6.9 g/dL (6.4-8.2)
[2018-09-07 16:06] VITALS: BP 107/70
[2018-09-07] MEDS: CALCIUM CARBONATE 500 MG TAB.CHEW PO SCH (17:31)
[2018-09-07] MEDS: traZODone 50 MG TABLET. PO SCH (19:32)
[2018-09-07] MEDS: ATORVASTATIN CALCIUM 10 MG TABLET. PO SCH (19:32)
[2018-09-07 19:40] VITALS: BP 103/70
--- NOTE | 2018-09-07 23:17 | PN ---
DATE: 09/07/2018 SUBJECTIVE: The patient was seen today, met with the staff, chart reviewed. Staff reports that the patient was agitated last night and tried to remove her clothes last night. I also talked with her daughter at her request. She wanted to know about her medications and the future plans. Staff reports no major problems during the daytime. The patient also tends to get paranoid and suspicious, gets agitated easily. OBSERVATION: VITAL SIGNS: Temperature 97.4, blood pressure 148/67, pulse 79, respirations 16, O2 sat 96%. Slept fair. Appetite good. MEDICATIONS: The patient's current medications include Zyprexa 5 mg b.i.d., trazodone 50 mg at night. She is also on Xanax 0.25 mg p.r.n. daily. The patient is not having any side effects. 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 PLAN: To continue with the treatment. LENGTH OF STAY: 4-5 days. RASTA RICK MD DR: DELILAH/thomas JOB#: [id number] / [id number]
[2018-09-08 05:49] VITALS: BP 112/69
[2018-09-08] MEDS: MULTIVITAMIN I-VITE TABLET. PO SCH (08:09)
[2018-09-08] MEDS: METOPROLOL SUCC 24HR ER 50 MG TAB.ER.24H. PO SCH ×2 (08:10→20:19)
[2018-09-08] MEDS: OLANZapine 5 MG TABLET PO SCH ×2 (08:10→20:14)
[2018-09-08] MEDS: POTASSIUM CHLORIDE 20 MEQ TABLET.ER. PO SCH (08:10)
[2018-09-08] MEDS: LISINOPRIL 5 MG TABLET. PO SCH (08:10)
[2018-09-08] MEDS: LEVOTHYROXINE 75 MCG TABLET PO SCH (08:11)
[2018-09-08] MEDS: PANTOPRAZOLE 40 MG TABLET. PO SCH (08:11)
[2018-09-08 15:45] VITALS: BP 104/60
[2018-09-08] MEDS: CALCIUM CARBONATE 500 MG TAB.CHEW PO SCH (17:15)
[2018-09-08] MEDS: ATORVASTATIN CALCIUM 10 MG TABLET. PO SCH (20:13)
[2018-09-08] MEDS: traZODone 50 MG TABLET. PO SCH (20:14)
--- NOTE | 2018-09-09 01:24 | PN ---
DATE: 09/08/2018 SUBJECTIVE: The patient was seen today, met with the staff, chart reviewed. The patient's behavior remains the same. She stays in bed most of the time, likes to be left alone. She is oriented to surroundings. She does have short term memory deficits. The patient is also exhibiting bizarre behaviors at times, mostly in the night, trying to remove all her clothes. OBSERVATION: VITAL SIGNS: Temperature 97.5, blood pressure 112/64, pulse 53, respirations 20, O2 sat 98%. Slept about 7 hours last night. Her appetite has improved. MEDICATIONS: The patient's current medications include Zyprexa 5 mg b.i.d., trazodone 50 mg at night. She is also on Xanax 0.25 mg daily p.r.n. She is not exhibiting any side effects. ASSESSMENT: Major neurocognitive disorder, most likely Alzheimer's versus vascular with delusion, depression and behavioral disturbances. PLAN: To continue with the treatment. Length of stay 4 days. RASTA RICK MD DR: DELILAH/thomas JOB#: [id number] / [id number]
[2018-09-09] MEDS: LEVOTHYROXINE 75 MCG TABLET PO SCH (07:30)
[2018-09-09] MEDS: PANTOPRAZOLE 40 MG TABLET. PO SCH (07:30)
[2018-09-09] MEDS: POTASSIUM CHLORIDE 20 MEQ TABLET.ER. PO SCH (08:00)
[2018-09-09] MEDS: MULTIVITAMIN I-VITE TABLET. PO SCH (08:17)
[2018-09-09] MEDS: LISINOPRIL 5 MG TABLET. PO SCH (08:17)
[2018-09-09] MEDS: METOPROLOL SUCC 24HR ER 50 MG TAB.ER.24H. PO SCH ×2 (08:17→20:32)
[2018-09-09] MEDS: OLANZapine 5 MG TABLET PO SCH ×2 (08:18→20:26)
[2018-09-09 09:00] VITALS: BP 113/72
[2018-09-09 15:59] VITALS: BP 101/61
[2018-09-09] MEDS: CALCIUM CARBONATE 500 MG TAB.CHEW PO SCH (16:52)
--- NOTE | 2018-09-09 19:50 | PN ---
DATE: 09/09/2018 SUBJECTIVE: The patient was seen today, met with the staff, chart reviewed. The patient continues to have behavior problems. The patient is constantly pacing. The patient has no awareness of surroundings. The patient mainly focusing on his depression, but does not show any vegetative symptoms of depression. His appetite is good. He is sleeping better. The patient is not able to think clearly, gets confused. OBSERVATION: VITAL SIGNS: Temperature 97.5, blood pressure 126/75, pulse 69, respirations 20, O2 sat 99%. Slept about 5-1/2 hours last night. The patient's appetite is good. MEDICATIONS: The patient's current medications include Risperdal 0.5 mg b.i.d., trazodone 25 mg at night, Aricept 10 mg at night, lorazepam 1 mg at night, Risperdal 1 mg at noon, gabapentin 100 mg b.i.d., Zoloft 100 mg daily. The patient is not having any side effects. ASSESSMENT: 1. Dementia, most likely frontotemporal versus Lewy body dementia with behavior problems and psychosis. 2. Major depression, recurrent. PLAN: To continue with the treatment. Length of stay 5 days. RASTA RICK MD DR: DELILAH/thmoas JOB#: [id number] / [id number]
--- NOTE | 2018-09-09 19:52 | PN ---
DATE: 09/09/2018 SUBJECTIVE: The patient was seen today, met with the staff, chart reviewed. Staff reports she has been having misbehavior problems, being delusional, paranoid at times. The patient also appears to be hallucinating auditorily. OBSERVATION: VITAL SIGNS: Temperature 98, blood pressure 113/72, pulse 80, respiration 18, O2 sat 97%. Slept about 7 hours last night. The patient's appetite is fair. MEDICATIONS: The patient's current medications include Zyprexa 5 mg b.i.d., trazodone 50 mg at night. She is also on Xanax 0.25 mg p.r.n. daily. The patient is not having any side effects. The patient has no major medical issues at this time. 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 PLAN: To continue with the treatment. LENGTH OF STAY: 4-5 days. RASTA RICK MD DR: DELILAH/thomas JOB#: [id number] / [id number]
[2018-09-09] MEDS: ATORVASTATIN CALCIUM 10 MG TABLET. PO SCH (20:26)
[2018-09-09] MEDS: traZODone 50 MG TABLET. PO SCH (20:27)
[2018-09-10 05:54] VITALS: BP 135/71
[2018-09-10] MEDS: LEVOTHYROXINE 75 MCG TABLET PO SCH (08:13)
[2018-09-10] MEDS: MULTIVITAMIN I-VITE TABLET. PO SCH (08:13)
[2018-09-10] MEDS: METOPROLOL SUCC 24HR ER 50 MG TAB.ER.24H. PO SCH ×2 (08:14→20:40)
[2018-09-10] MEDS: POTASSIUM CHLORIDE 20 MEQ TABLET.ER. PO SCH (08:15)
[2018-09-10] MEDS: PANTOPRAZOLE 40 MG TABLET. PO SCH (08:15)
[2018-09-10] MEDS: LISINOPRIL 5 MG TABLET. PO SCH (08:15)
[2018-09-10] MEDS: OLANZapine 5 MG TABLET PO SCH ×2 (08:15→20:29)
[2018-09-10 15:42] VITALS: BP 108/65
[2018-09-10] MEDS: CALCIUM CARBONATE 500 MG TAB.CHEW PO SCH (17:23)
[2018-09-10] MEDS: ATORVASTATIN CALCIUM 10 MG TABLET. PO SCH (20:29)
[2018-09-10] MEDS: traZODone 50 MG TABLET. PO SCH (20:29)
--- NOTE | 2018-09-11 01:25 | PN ---
DATE: 09/10/2018 SUBJECTIVE: The patient was seen today, met with the staff, chart reviewed. The patient is currently in bed, states she is feeling tired. The patient is able to hold conversation. The patient is oriented to surroundings, but staff observed that she is exhibiting behaviors including increased agitation, feeling paranoid and also being delusional at times, and also hallucinating auditorily. OBSERVATION: VITAL SIGNS: Temperature 97.9, blood pressure 135/71, pulse 82, respirations 18, O2 sat 97%. Slept about 5 hours last night. The patient's appetite is fair. The patient tends to isolate herself most of the time. The patient also has some blunting of affect. The patient was able to walk, no falls. MEDICATIONS: The patient's current medications include Zyprexa 5 mg b.i.d., trazodone 50 mg at night. She is also on Xanax 0.25 mg p.r.n. daily. The patient is not having any side effects. The patient has no major medical issues. 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 PLAN: To continue with the treatment. LENGTH OF STAY: 4 days. RASTA RICK MD DR: DELILAH/thomas JOB#: [id number] / [id number]
[2018-09-11 05:51] VITALS: BP 147/67
[2018-09-11] MEDS: LEVOTHYROXINE 75 MCG TABLET PO SCH (06:37)
[2018-09-11] MEDS: PANTOPRAZOLE 40 MG TABLET. PO SCH (08:10)
[2018-09-11] MEDS: OLANZapine 5 MG TABLET PO SCH ×2 (08:11→19:46)
[2018-09-11] MEDS: LISINOPRIL 5 MG TABLET. PO SCH (08:11)
[2018-09-11] MEDS: ALPRAZolam 0.25 MG TABLET PO PRN (08:11)
[2018-09-11] MEDS: MULTIVITAMIN I-VITE TABLET. PO SCH (08:11)
[2018-09-11] MEDS: METOPROLOL SUCC 24HR ER 50 MG TAB.ER.24H. PO SCH ×2 (08:12→19:46)
[2018-09-11] MEDS: POTASSIUM CHLORIDE 20 MEQ TABLET.ER. PO SCH (08:12)
[2018-09-11 16:19] VITALS: BP 111/74
[2018-09-11] MEDS: CALCIUM CARBONATE 500 MG TAB.CHEW PO SCH (16:48)
[2018-09-11] MEDS: traZODone 50 MG TABLET. PO SCH (19:46)
[2018-09-11] MEDS: ATORVASTATIN CALCIUM 10 MG TABLET. PO SCH (19:46)
--- NOTE | 2018-09-11 22:49 | PDOC ---
Exam Note: Jeremy Note: Please also refer to the separate dictated note~for this date of service dictated separately.~Patient seen individually. Discussed the patient with Nursing staff reviewed the chart.~Reviewed interim history and current functioning. Reviewed vital signs,~Labs/ Radiology~and current medications noted below. Continue current treatment with the changes noted in the dictated addendum note Assessment: Vital Signs: Vital Signs Date Time Temp Pulse Resp B/P (MAP) Pulse Ox O2 Delivery O2 Flow Rate FiO2 09/11/18 19:46 84 111/74 09/11/18 16:19 97.8 16 98 09/09/18 15:59 Room Air I&O Intake and Output 09/11/18 06:59 Intake Total 840 ml Balance 840 ml Intake Oral 840 ml # Voids 1 Current Medications: Meds: Current Medications Acetaminophen (Tylenol) 500 mg 1X ONCE PO Last administered on 08/31/18at 17:30; Start 08/31/18 at 17:30; Stop 08/31/18 at 17:37; Status DC Acetaminophen (Tylenol) 650 mg PRN Q6HRS PRN PO PAIN / TEMP; Start 08/31/18 at 19:45 Multi-Ingredient Ointment (Analgesic Frost) 1 duke PRN QID PRN TP MUSCLE PAIN; Start 08/31/18 at 19:45 Al Hydroxide/Mg Hydroxide (Mylanta Plus Xs) 15 ml PRN AFTMEALHC PRN PO DYSPEPSIA; Start 08/31/18 at 19:45 Magnesium Hydroxide (Milk Of Magnesia) 2,400 mg PRN QHS PRN PO CONSTIPATION; Start 08/31/18 at 19:45 Alprazolam (Xanax) 0.25 mg PRN DAILY PRN PO ANXIETY / AGITATION Last administered on 09/11/18at 08:11; Start 08/31/18 at 22:00 Olanzapine (ZyPREXA) 5 mg BID PO Last administered on 09/11/18at 19:46; Start 09/01/18 at 09:00 Trazodone HCl (Desyrel) 50 mg QHS PO Last administered on 09/11/18at 19:46; Start 09/01/18 at 21:00 Levothyroxine Sodium (Synthroid) 75 mcg DAILYAC PO Last administered on 09/11/18 at 06:37; Start 09/01/18 at 07:30 Potassium Chloride (Klor-Con) 20 meq DAILYWBKFT PO Last administered on 09/11/18at 08:12; Start 09/01/18 at 08:00; Stop 09/11/18 at 15:24; Status DC Non-Formulary Medication (Amoxicillin ) 500 mg TID PO ; Start 09/01/18 at 09:00; Stop 09/01/18 at 09:00; Status DC Lisinopril (Prinivil) 5 mg DAILY PO Last administered on 09/11/18at 08:11; Start 09/01/18 at 09:00 Calcium Carbonate/ Glycine (Tums) 1,250 mg DAILYWSUP PO Last administered on 09/11/18at 16:48; Start 09/01/18 at 17:00 Diphenoxylate HCl/ Atropine (Lomotil) 1 tab PRN QID PRN PO DIARRHEA; Start 08/31/18 at 22:15 Metoprolol Succinate (Toprol Xl) 50 mg BID PO Last administered on 09/11/18at 19:46; Start 09/01/18 at 09:00 Pantoprazole Sodium (Protonix) 40 mg DAILYAC PO Last administered on 09/11/18 08:10; Start 09/01/18 at 07:30 Pravastatin Sodium (Pravachol) 40 mg QHS PO Last administered on 09/04/18at 20:12; Start 09/01/18 at 21:00; Stop 09/05/18 at 20:20; Status DC Multivitamins/ Minerals (I-Delgado) 1 tab DAILY PO Last administered on 09/11/18at 08:11; Start 09/01/18 at 09:00 Trazodone HCl (Desyrel) 50 mg PRN QHS PRN PO INSOMNIA Last administered on 09/10/18at 00:23; Start 09/03/18 at 12:15 Atorvastatin Calcium (Lipitor) 10 mg QHS PO Last administered on 09/11/18at 1 9:46; Start 09/05/18 at 21:00 Potassium Chloride (KCl Oral Soln) 20 meq DAILY PO ; Start 09/12/18 at 09:00 Active Scripts Active Reported Preservision Areds Softgel (Vit A/Vit C/Vit E/Zinc/Copper) 1 Each Capsule 1 Each PO DAILY Pravastatin Sodium 40 Mg Tablet 40 Mg PO HS Klor-Con M20 (Potassium Chloride) 20 Meq Tab.er.prt 20 Meq PO DAILY Omeprazole 20 Mg Capsule.dr 20 Mg PO DAILY Metoprolol Succinate ( Xl ) (Metoprolol Succinate) 50 Mg Tab.er.24h 50 Mg PO BID Synthroid (Levothyroxine Sodium) 75 Mcg Tablet 75 Mcg PO DAILYAC Lomotil Tablet (Diphenoxylate Hcl/Atropine) 1 Each Tablet 1 Each PO PRN QID PRN Amoxicillin 500 Mg Capsule 500 Mg PO TID Calcium Carbonate 500 Mg/5 Ml Oral.susp 1,250 Mg PO DAILYWSUP Benazepril Hcl 5 Mg Tablet 5 Mg PO DAILY Trazodone Hcl 50 Mg Tablet 50 Mg PO QHS Olanzapine 5 Mg Tablet 5 Mg PO BID Alprazolam 0.25 Mg Tablet 0.25 Mg PO DAILY PRN I have reviewed the current psychotropics carefully including drug interactions. Risk benefit ratio favors no change other than as noted in my dictated progress note. Diagnosis: Problems: (1) Under care of mental health team (2) Anxiety disorder (3) Dementia in Alzheimer's disease with delusions (4) Dementia in Alzheimer's disease with depression (5) Dementia, vascular, with delusions (6) Dementia, vascular, with depression (7) Impulse control disorder (8) Psychosis, atypical (9) Major depressive disorder, recurrent episode JULIAN OLMEDO MD Sep 11, 2018 22:49
[2018-09-12 05:17] VITALS: BP 123/73
[2018-09-12] MEDS: LEVOTHYROXINE 75 MCG TABLET PO SCH (07:40)
[2018-09-12] MEDS: PANTOPRAZOLE 40 MG TABLET. PO SCH (07:41)
[2018-09-12] MEDS: LISINOPRIL 5 MG TABLET. PO SCH (08:13)
[2018-09-12] MEDS: MULTIVITAMIN I-VITE TABLET. PO SCH (08:13)
[2018-09-12] MEDS: OLANZapine 5 MG TABLET PO SCH ×2 (08:14→20:06)
[2018-09-12] MEDS: METOPROLOL SUCC 24HR ER 50 MG TAB.ER.24H. PO SCH ×2 (08:14→20:07)
[2018-09-12] MEDS: POTASSIUM CHLORIDE 20 MEQ/15 ML ORAL LIQUID. PO SCH (08:15)
[2018-09-12 16:26] VITALS: BP 104/66
[2018-09-12] MEDS: CALCIUM CARBONATE 500 MG TAB.CHEW PO SCH (17:10)
[2018-09-12] MEDS: traZODone 50 MG TABLET. PO SCH (20:06)
[2018-09-12] MEDS: ATORVASTATIN CALCIUM 10 MG TABLET. PO SCH (20:07)
--- NOTE | 2018-09-12 22:01 | PN ---
DATE: 09/11/2018 PSYCHIATRIC PROGRESS NOTE This late entry 09/11/2018 covers elements not covered in my initial note. SUBJECTIVE: I met with the patient in the evening. The patient slept 6 hours previous night, remains somewhat anxious, Xanax seemed to help. She seems to like music and responds positively to this. REVIEW OF SYSTEMS: Ambulation is reasonable. No CV, , pulmonary, eye, ENT system symptoms on review. Reliability poor. MENTAL STATUS EXAM: Oriented to herself. Insight, judgment, recent and remote memory, attention, concentration, fund of knowledge poor, consistent with her diagnosis. She seemed to know the year was 2018 and did not remember the name of the president, but knew that he had "red hair." LABORATORY DATA: Reviewed. IMPRESSION: Unchanged from initial note. PLAN: No change from initial note. MAN Kathy OLMEDO MD DR: PREETI/thomas JOB#: [id number] / [id number]
--- NOTE | 2018-09-12 22:48 | PDOC ---
Exam Note: Jeremy Note: Please also refer to the separate dictated note~for this date of service dictated separately.~Patient seen individually. Discussed the patient with Nursing staff reviewed the chart.~Reviewed interim history and current functioning. Reviewed vital signs,~Labs/ Radiology~and current medications noted below. Continue current treatment with the changes noted in the dictated addendum note Assessment: Vital Signs: Vital Signs Date Time Temp Pulse Resp B/P (MAP) Pulse Ox O2 Delivery O2 Flow Rate FiO2 09/12/18 20:07 66 104/66 09/12/18 16:26 97.4 16 98 09/09/18 15:59 Room Air I&O Intake and Output 09/12/18 07:00 Intake Total 960 ml Balance 960 ml Intake Oral 960 ml Current Medications: Meds: Current Medications Acetaminophen (Tylenol) 500 mg 1X ONCE PO Last administered on 08/31/18at 17:30; Start 08/31/18 at 17:30; Stop 08/31/18 at 17:37; Status DC Acetaminophen (Tylenol) 650 mg PRN Q6HRS PRN PO PAIN / TEMP; Start 08/31/18 at 19:45 Multi-Ingredient Ointment (Analgesic [place]) 1 duke PRN QID PRN TP MUSCLE PAIN; Start 08/31/18 at 19:45 Al Hydroxide/Mg Hydroxide (Mylanta Plus Xs) 15 ml PRN AFTMEALHC PRN PO DYSPEPSIA; Start 08/31/18 at 19:45 Magnesium Hydroxide (Milk Of Magnesia) 2,400 mg PRN QHS PRN PO CONSTIPATION; Start 08/31/18 at 19:45 Alprazolam (Xanax) 0.25 mg PRN DAILY PRN PO ANXIETY / AGITATION Last administered on 09/11/18at 08:11; Start 08/31/18 at 22:00 Olanzapine (ZyPREXA) 5 mg BID PO Last administered on 09/12/18at 20:06; Start 09/01/18 at 09:00; Stop 09/12/18 at 23:00 Trazodone HCl (Desyrel) 50 mg QHS PO Last administered on 09/12/18at 20:06; Start 09/01/18 at 21:00 Levothyroxine Sodium (Synthroid) 75 mcg DAILYAC PO Last administered on 09/12/18at 07:40; Start 09/01/18 at 07:30 Potassium Chloride (Klor-Con) 20 meq DAILYWBKFT PO Last administered on 09/11/18 08:12; Start 09/01/18 at 08:00; Stop 09/11/18 at 15:24; Status DC Non-Formulary Medication (Amoxicillin ) 500 mg TID PO ; Start 09/01/18 at 09:00; Stop 09/01/18 at 09:00; Status DC Lisinopril (Prinivil) 5 mg DAILY PO Last administered on 09/12/18 08:13; Start 09/01/18 at 09:00 Calcium Carbonate/ Glycine (Tums) 1,250 mg DAILYWSUP PO Last administered on 09/12/18 17:10; Start 09/01/18 at 17:00 Diphenoxylate HCl/ Atropine (Lomotil) 1 tab PRN QID PRN PO DIARRHEA; Start 08/31/18 at 22:15 Metoprolol Succinate (Toprol Xl) 50 mg BID PO Last administered on 09/12/18 20:07; Start 09/01/18 at 09:00 Pantoprazole Sodium (Protonix) 40 mg DAILYAC PO Last administered on 09/12/18 07:41; Start 09/01/18 at 07:30 Pravastatin Sodium (Pravachol) 40 mg QHS PO Last administered on 09/04/18 20:12; Start 09/01/18 at 21:00; Stop 09/05/18 at 20:20; Status DC Multivitamins/ Minerals (I-Delgado) 1 tab DAILY PO Last administered on 09/12/18 08:13; Start 09/01/18 at 09:00 Trazodone HCl (Desyrel) 50 mg PRN QHS PRN PO INSOMNIA Last administered on 09/10/18 00:23; Start 09/03/18 at 12:15 Atorvastatin Calcium (Lipitor) 10 mg QHS PO Last administered on 09/12/18 20:07; Start 09/05/18 at 21:00 Potassium Chloride (KCl Oral Soln) 20 meq DAILY PO Last administered on 09/12/18 08:15; Start 09/12/18 at 09:00 Olanzapine (ZyPREXA) 10 mg QHS PO ; Start 09/13/18 at 21:00 Active Scripts Active Reported Preservision Areds Softgel (Vit A/Vit C/Vit E/Zinc/Copper) 1 Each Capsule 1 Each PO DAILY Pravastatin Sodium 40 Mg Tablet 40 Mg PO HS Klor-Con M20 (Potassium Chloride) 20 Meq Tab.er.prt 20 Meq PO DAILY Omeprazole 20 Mg Capsule.dr 20 Mg PO DAILY Metoprolol Succinate ( Xl ) (Metoprolol Succinate) 50 Mg Tab.er.24h 50 Mg PO BID Synthroid (Levothyroxine Sodium) 75 Mcg Tablet 75 Mcg PO DAILYAC Lomotil Tablet (Diphenoxylate Hcl/Atropine) 1 Each Tablet 1 Each PO PRN QID PRN Amoxicillin 500 Mg Capsule 500 Mg PO TID Calcium Carbonate 500 Mg/5 Ml Oral.susp 1,250 Mg PO DAILYWSUP Benazepril Hcl 5 Mg Tablet 5 Mg PO DAILY Trazodone Hcl 50 Mg Tablet 50 Mg PO QHS Olanzapine 5 Mg Tablet 5 Mg PO BID Alprazolam 0.25 Mg Tablet 0.25 Mg PO DAILY PRN I have reviewed the current psychotropics carefully including drug interactions. Risk benefit ratio favors no change other than as noted in my dictated progress note. Diagnosis: Problems: (1) Under care of mental health team (2) Anxiety disorder (3) Dementia in Alzheimer's disease with delusions (4) Dementia in Alzheimer's disease with depression (5) Dementia, vascular, with delusions (6) Dementia, vascular, with depression (7) Impulse control disorder (8) Psychosis, atypical (9) Major depressive disorder, recurrent episode JULIAN OLMEDO MD Sep 12, 2018 22:48
[2018-09-13 06:26] VITALS: BP 104/66
[2018-09-13] MEDS: LEVOTHYROXINE 75 MCG TABLET PO SCH (08:19)
[2018-09-13] MEDS: PANTOPRAZOLE 40 MG TABLET. PO SCH (08:19)
[2018-09-13] MEDS: MULTIVITAMIN I-VITE TABLET. PO SCH (08:20)
[2018-09-13] MEDS: METOPROLOL SUCC 24HR ER 50 MG TAB.ER.24H. PO SCH ×2 (08:20→19:21)
[2018-09-13] MEDS: POTASSIUM CHLORIDE 20 MEQ/15 ML ORAL LIQUID. PO SCH (08:21)
[2018-09-13] MEDS: LISINOPRIL 5 MG TABLET. PO SCH (08:21)
[2018-09-13 16:33] VITALS: BP 124/63
[2018-09-13] MEDS: CALCIUM CARBONATE 500 MG TAB.CHEW PO SCH (17:01)
[2018-09-13] MEDS: ATORVASTATIN CALCIUM 10 MG TABLET. PO SCH (19:22)
[2018-09-13] MEDS: traZODone 50 MG TABLET. PO SCH (19:24)
[2018-09-13] MEDS: OLANZapine 10 MG TABLET PO SCH (19:44)
--- NOTE | 2018-09-13 22:49 | PDOC ---
Exam Note: Jeremy Note: Please also refer to the separate dictated note~for this date of service dictated separately.~Patient seen individually. Discussed the patient with Nursing staff reviewed the chart.~Reviewed interim history and current functioning. Reviewed vital signs,~Labs/ Radiology~and current medications noted below. Continue current treatment with the changes noted in the dictated addendum note Assessment: Vital Signs: Vital Signs Date Time Temp Pulse Resp B/P (MAP) Pulse Ox O2 Delivery O2 Flow Rate FiO2 09/13/18 19:21 76 124/63 09/13/18 16:33 98.3 18 98 09/09/18 15:59 Room Air I&O Intake and Output 09/13/18 07:00 Intake Total 720 ml Balance 720 ml Intake Oral 720 ml Current Medications: Meds: Current Medications Acetaminophen (Tylenol) 500 mg 1X ONCE PO Last administered on 08/31/18at 17:30; Start 08/31/18 at 17:30; Stop 08/31/18 at 17:37; Status DC Acetaminophen (Tylenol) 650 mg PRN Q6HRS PRN PO PAIN / TEMP; Start 08/31/18 at 19:45 Multi-Ingredient Ointment (Analgesic [place]) 1 duke PRN QID PRN TP MUSCLE PAIN; Start 08/31/18 at 19:45 Al Hydroxide/Mg Hydroxide (Mylanta Plus Xs) 15 ml PRN AFTMEALHC PRN PO DYSPEPSIA; Start 08/31/18 at 19:45 Magnesium Hydroxide (Milk Of Magnesia) 2,400 mg PRN QHS PRN PO CONSTIPATION; Start 08/31/18 at 19:45 Alprazolam (Xanax) 0.25 mg PRN DAILY PRN PO ANXIETY / AGITATION Last administered on 09/11/18at 08:11; Start 08/31/18 at 22:00 Olanzapine (ZyPREXA) 5 mg BID PO Last administered on 09/12/18at 20:06; Start 09/01/18 at 09:00; Stop 09/12/18 at 23:00; Status DC Trazodone HCl (Desyrel) 50 mg QHS PO Last administered on 09/13/18at 19:24; Start 09/01/18 at 21:00 Levothyroxine Sodium (Synthroid) 75 mcg DAILYAC PO Last administered on 09/13/18at 08:19; Start 09/01/18 at 07:30 Potassium Chloride (Klor-Con) 20 meq DAILYWBKFT PO Last administered on 09/11/18at 08:12; Start 09/01/18 at 08:00; Stop 09/11/18 at 15:24; Status DC Non-Formulary Medication (Amoxicillin ) 500 mg TID PO ; Start 09/01/18 at 09:00; Stop 09/01/18 at 09:00; Status DC Lisinopril (Prinivil) 5 mg DAILY PO Last administered on 09/13/18 08:21; Start 09/01/18 at 09:00 Calcium Carbonate/ Glycine (Tums) 1,250 mg DAILYWSUP PO Last administered on 09/13/18at 17:01; Start 09/01/18 at 17:00 Diphenoxylate HCl/ Atropine (Lomotil) 1 tab PRN QID PRN PO DIARRHEA; Start 08/31/18 at 22:15 Metoprolol Succinate (Toprol Xl) 50 mg BID PO Last administered on 09/13/18 19:21; Start 09/01/18 at 09:00 Pantoprazole Sodium (Protonix) 40 mg DAILYAC PO Last administered on 09/13/18 08:19; Start 09/01/18 at 07:30 Pravastatin Sodium (Pravachol) 40 mg QHS PO Last administered on 09/04/18 20:12; Start 09/01/18 at 21:00; Stop 09/05/18 at 20:20; Status DC Multivitamins/ Minerals (I-Delgado) 1 tab DAILY PO Last administered on 09/13/18at 08:20; Start 09/01/18 at 09:00 Trazodone HCl (Desyrel) 50 mg PRN QHS PRN PO INSOMNIA Last administered on 09/10/18 00:23; Start 09/03/18 at 12:15 Atorvastatin Calcium (Lipitor) 10 mg QHS PO Last administered on 09/13/18 19:22; Start 09/05/18 at 21:00 Potassium Chloride (KCl Oral Soln) 20 meq DAILY PO Last administered on 08:21; Start 09/12/18 at 09:00 Olanzapine (ZyPREXA) 10 mg QHS PO Last administered on 09/13/18at 19:44; Start 09/13/18 at 21:00 Active Scripts Active Reported Preservision Areds Softgel (Vit A/Vit C/Vit E/Zinc/Copper) 1 Each Capsule 1 Each PO DAILY Pravastatin Sodium 40 Mg Tablet 40 Mg PO HS Klor-Con M20 (Potassium Chloride) 20 Meq Tab.er.prt 20 Meq PO DAILY Omeprazole 20 Mg Capsule.dr 20 Mg PO DAILY Metoprolol Succinate ( Xl ) (Metoprolol Succinate) 50 Mg Tab.er.24h 50 Mg PO BID Synthroid (Levothyroxine Sodium) 75 Mcg Tablet 75 Mcg PO DAILYAC Lomotil Tablet (Diphenoxylate Hcl/Atropine) 1 Each Tablet 1 Each PO PRN QID PRN Amoxicillin 500 Mg Capsule 500 Mg PO TID Calcium Carbonate 500 Mg/5 Ml Oral.susp 1,250 Mg PO DAILYWSUP Benazepril Hcl 5 Mg Tablet 5 Mg PO DAILY Trazodone Hcl 50 Mg Tablet 50 Mg PO QHS Olanzapine 5 Mg Tablet 5 Mg PO BID Alprazolam 0.25 Mg Tablet 0.25 Mg PO DAILY PRN I have reviewed the current psychotropics carefully including drug interactions. Risk benefit ratio favors no change other than as noted in my dictated progress note. Diagnosis: Problems: (1) Under care of mental health team (2) Anxiety disorder (3) Dementia in Alzheimer's disease with delusions (4) Dementia in Alzheimer's disease with depression (5) Dementia, vascular, with delusions (6) Dementia, vascular, with depression (7) Impulse control disorder (8) Psychosis, atypical (9) Major depressive disorder, recurrent episode JULIAN OLMEDO MD Sep 13, 2018 22:49
--- NOTE | 2018-09-13 23:00 | PN ---
DATE: 09/12/2018 PSYCHIATRIC PROGRESS NOTE This late entry 09/12/2018 covers elements not covered in my initial note. SUBJECTIVE: I met with the patient in the evening. The patient slept just 3/4 hours previous night. She spends much of the day in bed, somewhat sedated, complains of being dizzy, tired during the day. I met with her in her room. REVIEW OF SYSTEMS: No CV, , pulmonary, eye system symptoms on review. She states the voices are better. MENTAL STATUS EXAM: Reasonably oriented to herself and situation. Speech coherent, abstraction fair, computation impaired, language function intact. Attention span short. Short term memory is impaired. No suicidal or homicidal ideation. She reads lips very well. LABORATORY DATA: Reviewed. IMPRESSION: Major neurocognitive disorder, vascular, Alzheimer with delusion, depression, behavioral disturbance; psychotic disorder, unspecified; impulse control disorder, unspecified; anxiety disorder, unspecified. PLAN: Continue current psychotropics, but change the Zyprexa 5 mg b.i.d. to 10 mg at bedtime. Rest unchanged. MAN Kathy OLMEDO MD DR: PREETI/thomas JOB#: [id number] / [id number]
[2018-09-14 05:50] VITALS: BP 122/76
[2018-09-14] MEDS: METOPROLOL SUCC 24HR ER 50 MG TAB.ER.24H. PO SCH ×2 (08:53→20:41)
[2018-09-14] MEDS: LEVOTHYROXINE 75 MCG TABLET PO SCH (08:53)
[2018-09-14] MEDS: PANTOPRAZOLE 40 MG TABLET. PO SCH (08:53)
[2018-09-14] MEDS: MULTIVITAMIN I-VITE TABLET. PO SCH (08:54)
[2018-09-14] MEDS: LISINOPRIL 5 MG TABLET. PO SCH (08:54)
[2018-09-14] MEDS: POTASSIUM CHLORIDE 20 MEQ/15 ML ORAL LIQUID. PO SCH (08:54)
[2018-09-14 09:11] LABS: BASO # 0.1 x10^3/uL (0.0-0.2); BASO % 1 % (0-3); EOS # 0.1 x10^3/uL (0.0-0.7); EOS % 1 % (0-3); HEMATOCRIT 36.9 % (36.0-47.0); HEMOGLOBIN 12.5 g/dL (12.0-15.5); LYMPH # 1.3 x10^3/uL (1.0-4.8); LYMPH % 24 % (24-48); MEAN CORPUSCULAR HEMOGLOBIN 33 pg (25-35); MEAN CORPUSCULAR HGB CONC 34 g/dL (31-37); MEAN CORPUSCULAR VOLUME 96 fL (79-100); MONO # 0.4 x10^3/uL (0.0-1.1); MONO % 7 % (0-9); NEUT # 3.7 x10^3uL (1.8-7.7); NEUT % 67 % (31-73); PLATELET COUNT 150 x10^3/uL (140-400); RED BLOOD COUNT 3.85 x10^6/uL (3.50-5.40); RED CELL DISTRIBUTION WIDTH 16.4 % (11.5-14.5); WHITE BLOOD COUNT 5.5 x10^3/uL (4.0-11.0)
[2018-09-14 09:23] LABS: ALBUMIN 3.3 g/dL (3.4-5.0); ALBUMIN/GLOBULIN RATIO 0.8 (1.0-1.7); CREATININE 1.2 mg/dL (0.6-1.0); GFR 43.1; POTASSIUM 4.4 mmol/L (3.5-5.1); TOTAL BILIRUBIN 0.8 mg/dL (0.2-1.0); TOTAL PROTEIN 7.5 g/dL (6.4-8.2)
[2018-09-14 16:18] VITALS: BP 151/73
[2018-09-14] MEDS: CALCIUM CARBONATE 500 MG TAB.CHEW PO SCH (17:25)
[2018-09-14] MEDS: OLANZapine 10 MG TABLET PO SCH (20:40)
[2018-09-14] MEDS: ATORVASTATIN CALCIUM 10 MG TABLET. PO SCH (20:40)
[2018-09-14] MEDS: traZODone 50 MG TABLET. PO SCH (20:42)
--- NOTE | 2018-09-14 22:59 | PDOC ---
Exam Note: Jeremy Note: Please also refer to the separate dictated note~for this date of service dictated separately.~Patient seen individually. Discussed the patient with Nursing staff reviewed the chart.~Reviewed interim history and current functioning. Reviewed vital signs,~Labs/ Radiology~and current medications noted below. Continue current treatment with the changes noted in the dictated addendum note Assessment: Vital Signs: Vital Signs Date Time Temp Pulse Resp B/P (MAP) Pulse Ox O2 Delivery O2 Flow Rate FiO2 09/14/18 20:41 78 151/73 09/14/18 16:18 97.6 19 96 Room Air I&O Intake and Output 09/14/18 07:00 Intake Total 660 ml Balance 660 ml Intake Oral 660 ml # Voids 1 Labs: Laboratory Tests Test 09/14/18 09:02 White Blood Count 5.5 x10^3/uL (4.0-11.0) Red Blood Count 3.85 x10^6/uL (3.50-5.40) Hemoglobin 12.5 g/dL (12.0-15.5) Hematocrit 36.9 % (36.0-47.0) Mean Corpuscular Volume 96 fL (79-100) Mean Corpuscular Hemoglobin 33 pg (25-35) Mean Corpuscular Hemoglobin Concent 34 g/dL (31-37) Red Cell Distribution Width 16.4 % (11.5-14.5) H Platelet Count 150 x10^3/uL (140-400) Neutrophils (%) (Auto) 67 % (31-73) Lymphocytes (%) (Auto) 24 % (24-48) Monocytes (%) (Auto) 7 % (0-9) Eosinophils (%) (Auto) 1 % (0-3) Basophils (%) (Auto) 1 % (0-3) Neutrophils # (Auto) 3.7 x10^3uL (1.8-7.7) Lymphocytes # (Auto) 1.3 x10^3/uL (1.0-4.8) Monocytes # (Auto) 0.4 x10^3/uL (0.0-1.1) Eosinophils # (Auto) 0.1 x10^3/uL (0.0-0.7) Basophils # (Auto) 0.1 x10^3/uL (0.0-0.2) Sodium Level 141 mmol/L (136-145) Potassium Level 4.4 mmol/L (3.5-5.1) Chloride Level 104 mmol/L (98-107) Carbon Dioxide Level 30 mmol/L (21-32) Anion Gap 7 (6-14) Blood Urea Nitrogen 20 mg/dL (7-20) Creatinine 1.2 mg/dL (0.6-1.0) H Estimated GFR (Cockcroft-Gault) 43.1 BUN/Creatinine Ratio 17 (6-20) Glucose Level 96 mg/dL (70-99) Calcium Level 9.0 mg/dL (8.5-10.1) Total Bilirubin 0.8 mg/dL (0.2-1.0) Aspartate Amino Transferase (AST) 25 U/L (15-37) Alanine Aminotransferase (ALT) 24 U/L (14-59) Alkaline Phosphatase 73 U/L (46-116) Total Protein 7.5 g/dL (6.4-8.2) Albumin 3.3 g/dL (3.4-5.0) L Albumin/Globulin Ratio 0.8 (1.0-1.7) L Current Medications: Meds: Current Medications Acetaminophen (Tylenol) 500 mg 1X ONCE PO Last administered on 08/31/18at 17:30; Start 08/31/18 at 17:30; Stop 08/31/18 at 17:37; Status DC Acetaminophen (Tylenol) 650 mg PRN Q6HRS PRN PO PAIN / TEMP; Start 08/31/18 at 19:45 Multi-Ingredient Ointment (Analgesic [place]) 1 duke PRN QID PRN TP MUSCLE PAIN; Start 08/31/18 at 19:45 Al Hydroxide/Mg Hydroxide (Mylanta Plus Xs) 15 ml PRN AFTMEALHC PRN PO DYSPEPSI A; Start 08/31/18 at 19:45 Magnesium Hydroxide (Milk Of Magnesia) 2,400 mg PRN QHS PRN PO CONSTIPATION; Start 08/31/18 at 19:45 Alprazolam (Xanax) 0.25 mg PRN DAILY PRN PO ANXIETY / AGITATION Last administered on 09/11/18at 08:11; Start 08/31/18 at 22:00 Olanzapine (ZyPREXA) 5 mg BID PO Last administered on 09/12/18at 20:06; Start 09/01/18 at 09:00; Stop 09/12/18 at 23:00; Status DC Trazodone HCl (Desyrel) 50 mg QHS PO Last administered on 09/14/18 20:42; Start 09/01/18 at 21:00 Levothyroxine Sodium (Synthroid) 75 mcg DAILYAC PO Last administered on 09/14/18 08:53; Start 09/01/18 at 07:30 Potassium Chloride (Klor-Con) 20 meq DAILYWBKFT PO Last administered on 09/11/18 08:12; Start 09/01/18 at 08:00; Stop 09/11/18 at 15:24; Status DC Non-Formulary Medication (Amoxicillin ) 500 mg TID PO ; Start 09/01/18 at 09:00; Stop 09/01/18 at 09:00; Status DC Lisinopril (Prinivil) 5 mg DAILY PO Last administered on 09/14/18 08:54; Start 09/01/18 at 09:00 Calcium Carbonate/ Glycine (Tums) 1,250 mg DAILYWSUP PO Last administered on 09/14/18 17:25; Start 09/01/18 at 17:00 Diphenoxylate HCl/ Atropine (Lomotil) 1 tab PRN QID PRN PO DIARRHEA; Start 08/31/18 at 22:15 Metoprolol Succinate (Toprol Xl) 50 mg BID PO Last administered on 09/14/18 20:41; Start 09/01/18 at 09:00 Pantoprazole Sodium (Protonix) 40 mg DAILYAC PO Last administered on 09/14/18 08:53; Start 09/01/18 at 07:30 Pravastatin Sodium (Pravachol) 40 mg QHS PO Last administered on 09/04/18 20:12; Start 09/01/18 at 21:00; Stop 09/05/18 at 20:20; Status DC Multivitamins/ Minerals (I-Delgado) 1 tab DAILY PO Last administered on 09/14/18 08:54; Start 09/01/18 at 09:00 Trazodone HCl (Desyrel) 50 mg PRN QHS PRN PO INSOMNIA Last administered on 09/10/18at 00:23; Start 09/03/18 at 12:15 Atorvastatin Calcium (Lipitor) 10 mg QHS PO Last administered on 09/14/18at 20:40; Start 09/05/18 at 21:00 Potassium Chloride (KCl Oral Soln) 20 meq DAILY PO Last administered on 09/14/18at 08:54; Start 09/12/18 at 09:00 Olanzapine (ZyPREXA) 10 mg QHS PO Last administered on 09/14/18at 20:40; Start 09/13/18 at 21:00 Fluoxetine HCl (PROzac) 10 mg DAILY PO ; Start 09/15/18 at 09:00 Active Scripts Active Reported Preservision Areds Softgel (Vit A/Vit C/Vit E/Zinc/Copper) 1 Each Capsule 1 Each PO DAILY Pravastatin Sodium 40 Mg Tablet 40 Mg PO HS Klor-Con M20 (Potassium Chloride) 20 Meq Tab.er.prt 20 Meq PO DAILY Omeprazole 20 Mg Capsule.dr 20 Mg PO DAILY Metoprolol Succinate ( Xl ) (Metoprolol Succinate) 50 Mg Tab.er.24h 50 Mg PO BID Synthroid (Levothyroxine Sodium) 75 Mcg Tablet 75 Mcg PO DAILYAC Lomotil Tablet (Diphenoxylate Hcl/Atropine) 1 Each Tablet 1 Each PO PRN QID PRN Amoxicillin 500 Mg Capsule 500 Mg PO TID Calcium Carbonate 500 Mg/5 Ml Oral.susp 1,250 Mg PO DAILYWSUP Benazepril Hcl 5 Mg Tablet 5 Mg PO DAILY Trazodone Hcl 50 Mg Tablet 50 Mg PO QHS Olanzapine 5 Mg Tablet 5 Mg PO BID Alprazolam 0.25 Mg Tablet 0.25 Mg PO DAILY PRN I have reviewed the current psychotropics carefully including drug interactions. Risk benefit ratio favors no change other than as noted in my dictated progress note. Diagnosis: Problems: (1) Under care of mental health team (2) Anxiety disorder (3) Dementia in Alzheimer's disease with delusions (4) Dementia in Alzheimer's disease with depression (5) Dementia, vascular, with delusions (6) Dementia, vascular, with depression (7) Impulse control disorder (8) Psychosis, atypical (9) Major depressive disorder, recurrent episode JULIAN OLMEDO MD Sep 14, 2018 22:59
[2018-09-15 05:53] VITALS: BP 137/57
[2018-09-15] MEDS: POTASSIUM CHLORIDE 20 MEQ/15 ML ORAL LIQUID. PO SCH (09:01)
[2018-09-15] MEDS: PANTOPRAZOLE 40 MG TABLET. PO SCH (09:01)
[2018-09-15] MEDS: MULTIVITAMIN I-VITE TABLET. PO SCH (09:01)
[2018-09-15] MEDS: LEVOTHYROXINE 75 MCG TABLET PO SCH (09:02)
[2018-09-15] MEDS: LISINOPRIL 5 MG TABLET. PO SCH (09:02)
[2018-09-15] MEDS: METOPROLOL SUCC 24HR ER 50 MG TAB.ER.24H. PO SCH ×2 (09:02→20:20)
[2018-09-15] MEDS: FLUoxetine HCL 10 MG CAPSULE PO SCH (09:03)
[2018-09-15 16:14] VITALS: BP 129/75
[2018-09-15] MEDS: CALCIUM CARBONATE 500 MG TAB.CHEW PO SCH (17:32)
[2018-09-15] MEDS: OLANZapine 10 MG TABLET PO SCH (20:19)
[2018-09-15] MEDS: traZODone 50 MG TABLET. PO SCH (20:20)
[2018-09-15] MEDS: ATORVASTATIN CALCIUM 10 MG TABLET. PO SCH (20:20)
--- NOTE | 2018-09-15 21:41 | PN ---
DATE: 09/13/2018 PSYCHIATRIC PROGRESS NOTE This late entry 09/13/2018 covers elements not covered in my initial note. SUBJECTIVE: I met with the patient in the evening. The patient slept 4-3/4 hours previous night. visited. She has had some questionable ongoing auditory hallucinations. We will make sure we get the trazodone at night for the insomnia. REVIEW OF SYSTEMS: No CV, , pulmonary system symptoms on review. Hard of hearing. MENTAL STATUS EXAM: Oriented to herself and situation. Speech is coherent, met with her at length in her room. Abstraction fair, computation somewhat impaired, language function intact, attention span short. Mood and affect withdrawn, spends much time in her room. LABORATORY DATA: Reviewed. No suicidal ideation. IMPRESSION: Unchanged from initial note. PLAN: No change from initial note. MAN Kathy OLMEDO MD DR: PREETI/thomas JOB#: [id number] / [id number]
--- NOTE | 2018-09-15 21:48 | PN ---
DATE: 09/14/2018 PSYCHIATRIC PROGRESS NOTE This late entry 09/14/2018 covers elements not covered in my initial note. SUBJECTIVE: I met with the patient in early afternoon and staffed at treatment team meeting with the entire team in the morning and the patient's daughter and son-in-law and attended and the other daughter was on the conference call. Reviewed her history at length of progressive memory deficits, paranoia with command hallucinations and one time she tried to swallow her pills and undressed herself in response to these hallucinations at home. She gets very paranoid, psychotic, symptoms have been worsening for about 3 months. REVIEW OF SYSTEMS: Positive for the ongoing auditory hallucinations. No CV, , pulmonary, eye system symptoms on review. MENTAL STATUS EXAM: Oriented to herself and situation. Speech is coherent, abstraction fair, computation impaired, language function intact, attention span short. Mood and affect somewhat withdrawn. LABORATORY DATA: Reviewed. IMPRESSION: Unchanged from initial note. PLAN: The patient has done well on Prozac in the past for her mood, anxiety symptoms and obsessive thought processes, we will restart 10 mg a day. Continue Zyprexa 10 mg at bedtime, Xanax daily, and trazodone p.r.n., may repeat x 2 for insomnia. JULIAN OLMEDO MD DR: PREETI/thomas JOB#: [id number] / [id number]
--- NOTE | 2018-09-15 22:41 | PDOC ---
Exam Note: Jeremy Note: Please also refer to the separate dictated note~for this date of service dictated separately.~Patient seen individually. Discussed the patient with Nursing staff reviewed the chart.~Reviewed interim history and current functioning. Reviewed vital signs,~Labs/ Radiology~and current medications noted below. Continue current treatment with the changes noted in the dictated addendum note Assessment: Vital Signs: Vital Signs Date Time Temp Pulse Resp B/P (MAP) Pulse Ox O2 Delivery O2 Flow Rate FiO2 09/15/18 20:20 81 129/75 09/15/18 16:14 97.2 16 98 Room Air I&O Intake and Output 09/15/18 07:00 Intake Total 840 ml Balance 840 ml Intake Oral 840 ml # Voids 1 Current Medications: Meds: Current Medications Acetaminophen (Tylenol) 500 mg 1X ONCE PO Last administered on 08/31/18at 17:30; Start 08/31/18 at 17:30; Stop 08/31/18 at 17:37; Status DC Acetaminophen (Tylenol) 650 mg PRN Q6HRS PRN PO PAIN / TEMP; Start 08/31/18 at 19:45 Multi-Ingredient Ointment (Analgesic [place]) 1 duke PRN QID PRN TP MUSCLE PAIN; Start 08/31/18 at 19:45 Al Hydroxide/Mg Hydroxide (Mylanta Plus Xs) 15 ml PRN AFTMEALHC PRN PO DYSPEPSIA; Start 08/31/18 at 19:45 Magnesium Hydroxide (Milk Of Magnesia) 2,400 mg PRN QHS PRN PO CONSTIPATION; Start 08/31/18 at 19:45 Alprazolam (Xanax) 0.25 mg PRN DAILY PRN PO ANXIETY / AGITATION Last administered on 09/11/18at 08:11; Start 08/31/18 at 22:00 Olanzapine (ZyPREXA) 5 mg BID PO Last administered on 09/12/18at 20:06; Start 09/01/18 at 09:00; Stop 09/12/18 at 23:00; Status DC Trazodone HCl (Desyrel) 50 mg QHS PO Last administered on 09/15/18at 20:20; Start 09/01/18 at 21:00 Levothyroxine Sodium (Synthroid) 75 mcg DAILYAC PO Last administered on 09/15/18at 09:02; Start 09/01/18 at 07:30 Potassium Chloride (Klor-Con) 20 meq DAILYWBKFT PO Last administered on 09/11/18 08:12; Start 09/01/18 at 08:00; Stop 09/11/18 at 15:24; Status DC Non-Formulary Medication (Amoxicillin ) 500 mg TID PO ; Start 09/01/18 at 09:00; Stop 09/01/18 at 09:00; Status DC Lisinopril (Prinivil) 5 mg DAILY PO Last administered on 09/15/18 09:02; Start 09/01/18 at 09:00 Calcium Carbonate/ Glycine (Tums) 1,250 mg DAILYWSUP PO Last administered on 09/15/18 17:32; Start 09/01/18 at 17:00 Diphenoxylate HCl/ Atropine (Lomotil) 1 tab PRN QID PRN PO DIARRHEA; Start 08/31/18 at 22:15 Metoprolol Succinate (Toprol Xl) 50 mg BID PO Last administered on 09/15/18 20:20; Start 09/01/18 at 09:00 Pantoprazole Sodium (Protonix) 40 mg DAILYAC PO Last administered on 09/15/18 09:01; Start 09/01/18 at 07:30 Pravastatin Sodium (Pravachol) 40 mg QHS PO Last administered on 09/04/18 20:12; Start 09/01/18 at 21:00; Stop 09/05/18 at 20:20; Status DC Multivitamins/ Minerals (I-Delgado) 1 tab DAILY PO Last administered on 09/15/18 09:01; Start 09/01/18 at 09:00 Trazodone HCl (Desyrel) 50 mg PRN QHS PRN PO INSOMNIA Last administered on 09/10/18 00:23; Start 09/03/18 at 12:15 Atorvastatin Calcium (Lipitor) 10 mg QHS PO Last administered on 09/15/18 20:20; Start 09/05/18 at 21:00 Potassium Chloride (KCl Oral Soln) 20 meq DAILY PO Last administered on 09/15/18 09:01; Start 09/12/18 at 09:00 Olanzapine (ZyPREXA) 10 mg QHS PO Last administered on 4/26/19at 20:19; Start 09/13/18 at 21:00 Fluoxetine HCl (PROzac) 10 mg DAILY PO Last administered on 09/15/18at 09:03; Start 09/15/18 at 09:00 Active Scripts Active Reported Preservision Areds Softgel (Vit A/Vit C/Vit E/Zinc/Copper) 1 Each Capsule 1 Each PO DAILY Pravastatin Sodium 40 Mg Tablet 40 Mg PO HS Klor-Con M20 (Potassium Chloride) 20 Meq Tab.er.prt 20 Meq PO DAILY Omeprazole 20 Mg Capsule.dr 20 Mg PO DAILY Metoprolol Succinate ( Xl ) (Metoprolol Succinate) 50 Mg Tab.er.24h 50 Mg PO BID Synthroid (Levothyroxine Sodium) 75 Mcg Tablet 75 Mcg PO DAILYAC Lomotil Tablet (Diphenoxylate Hcl/Atropine) 1 Each Tablet 1 Each PO PRN QID PRN Amoxicillin 500 Mg Capsule 500 Mg PO TID Calcium Carbonate 500 Mg/5 Ml Oral.susp 1,250 Mg PO DAILYWSUP Benazepril Hcl 5 Mg Tablet 5 Mg PO DAILY Trazodone Hcl 50 Mg Tablet 50 Mg PO QHS Olanzapine 5 Mg Tablet 5 Mg PO BID Alprazolam 0.25 Mg Tablet 0.25 Mg PO DAILY PRN I have reviewed the current psychotropics carefully including drug interactions. Risk benefit ratio favors no change other than as noted in my dictated progress note. Diagnosis: Problems: (1) Under care of mental health team (2) Anxiety disorder (3) Dementia in Alzheimer's disease with delusions (4) Dementia in Alzheimer's disease with depression (5) Dementia, vascular, with delusions (6) Dementia, vascular, with depression (7) Impulse control disorder (8) Psychosis, atypical (9) Major depressive disorder, recurrent episode JULIAN OLMEDO MD Sep 15, 2018 22:41
[2018-09-16 06:14] VITALS: BP 92/50
[2018-09-16] MEDS: PANTOPRAZOLE 40 MG TABLET. PO SCH (07:36)
[2018-09-16] MEDS: MULTIVITAMIN I-VITE TABLET. PO SCH (07:36)
[2018-09-16] MEDS: FLUoxetine HCL 10 MG CAPSULE PO SCH (07:37)
[2018-09-16] MEDS: LISINOPRIL 5 MG TABLET. PO SCH (07:37)
[2018-09-16] MEDS: POTASSIUM CHLORIDE 20 MEQ/15 ML ORAL LIQUID. PO SCH (07:37)
[2018-09-16] MEDS: LEVOTHYROXINE 75 MCG TABLET PO SCH (07:42)
[2018-09-16] MEDS: METOPROLOL SUCC 24HR ER 50 MG TAB.ER.24H. PO SCH ×2 (07:43→19:57)
[2018-09-16 15:56] VITALS: BP 99/64
[2018-09-16] MEDS: CALCIUM CARBONATE 500 MG TAB.CHEW PO SCH (16:27)
[2018-09-16] MEDS: traZODone 50 MG TABLET. PO SCH (19:25)
[2018-09-16] MEDS: OLANZapine 10 MG TABLET PO SCH (19:25)
[2018-09-16] MEDS: ATORVASTATIN CALCIUM 10 MG TABLET. PO SCH (19:25)
[2018-09-16 19:55] VITALS: BP 104/61
--- NOTE | 2018-09-16 22:50 | PDOC ---
Exam Note: Jeremy Note: Please also refer to the separate dictated note~for this date of service dictated separately.~Patient seen individually. Discussed the patient with Nursing staff reviewed the chart.~Reviewed interim history and current functioning. Reviewed vital signs,~Labs/ Radiology~and current medications noted below. Continue current treatment with the changes noted in the dictated addendum note Assessment: Vital Signs: Vital Signs Date Time Temp Pulse Resp B/P (MAP) Pulse Ox O2 Delivery O2 Flow Rate FiO2 09/16/18 19:57 54 104/61 09/16/18 19:55 18 98 09/16/18 15:56 98.3 Room Air I&O Intake and Output 09/16/18 07:00 Intake Total 960 ml Balance 960 ml Intake Oral 960 ml Current Medications: Meds: Current Medications Acetaminophen (Tylenol) 500 mg 1X ONCE PO Last administered on 08/31/18at 17:30; Start 08/31/18 at 17:30; Stop 08/31/18 at 17:37; Status DC Acetaminophen (Tylenol) 650 mg PRN Q6HRS PRN PO PAIN / TEMP Last administered on 09/16/18at 07:44; Start 08/31/18 at 19:45 Multi-Ingredient Ointment (Analgesic [place]) 1 duke PRN QID PRN TP MUSCLE PAIN; Start 08/31/18 at 19:45 Al Hydroxide/Mg Hydroxide (Mylanta Plus Xs) 15 ml PRN AFTMEALHC PRN PO DYS PEPSIA; Start 08/31/18 at 19:45 Magnesium Hydroxide (Milk Of Magnesia) 2,400 mg PRN QHS PRN PO CONSTIPATION; Start 08/31/18 at 19:45 Alprazolam (Xanax) 0.25 mg PRN DAILY PRN PO ANXIETY / AGITATION Last administered on 09/11/18at 08:11; Start 08/31/18 at 22:00 Olanzapine (ZyPREXA) 5 mg BID PO Last administered on 09/12/18at 20:06; Start 09/01/18 at 09:00; Stop 09/12/18 at 23:00; Status DC Trazodone HCl (Desyrel) 50 mg QHS PO Last administered on 09/16/18at 19:25; Start 09/01/18 at 21:00 Levothyroxine Sodium (Synthroid) 75 mcg DAILYAC PO Last administered on 09/16/18 07:42; Start 09/01/18 at 07:30 Potassium Chloride (Klor-Con) 20 meq DAILYWBKFT PO Last administered on 09/11/18 08:12; Start 09/01/18 at 08:00; Stop 09/11/18 at 15:24; Status DC Non-Formulary Medication (Amoxicillin ) 500 mg TID PO ; Start 09/01/18 at 09:00; Stop 09/01/18 at 09:00; Status DC Lisinopril (Prinivil) 5 mg DAILY PO Last administered on 09/15/18 09:02; Start 09/01/18 at 09:00 Calcium Carbonate/ Glycine (Tums) 1,250 mg DAILYWSUP PO Last administered on 09/16/18 16:27; Start 09/01/18 at 17:00 Diphenoxylate HCl/ Atropine (Lomotil) 1 tab PRN QID PRN PO DIARRHEA; Start 08/31/18 at 22:15 Metoprolol Succinate (Toprol Xl) 50 mg BID PO Last administered on 09/15/18 20:20; Start 09/01/18 at 09:00 Pantoprazole Sodium (Protonix) 40 mg DAILYAC PO Last administered on 09/16/18 07:36; Start 09/01/18 at 07:30 Pravastatin Sodium (Pravachol) 40 mg QHS PO Last administered on 09/04/18 20:12; Start 09/01/18 at 21:00; Stop 09/05/18 at 20:20; Status DC Multivitamins/ Minerals (I-Delgado) 1 tab DAILY PO Last administered on 09/16/18 07:36; Start 09/01/18 at 09:00 Trazodone HCl (Desyrel) 50 mg PRN QHS PRN PO INSOMNIA Last administered on 09/10/18 00:23; Start 09/03/18 at 12:15 Atorvastatin Calcium (Lipitor) 10 mg QHS PO Last administered on 09/16/18 19:25; Start 09/05/18 at 21:00 Potassium Chloride (KCl Oral Soln) 20 meq DAILY PO Last administered on 09/16/18 07:37; Start 09/12/18 at 09:00 Olanzapine (ZyPREXA) 10 mg QHS PO Last administered on 09/16/18at 19:25; Start 09/13/18 at 21:00 Fluoxetine HCl (PROzac) 10 mg DAILY PO Last administered on 09/16/18at 07:37; Start 09/15/18 at 09:00 Active Scripts Active Reported Preservision Areds Softgel (Vit A/Vit C/Vit E/Zinc/Copper) 1 Each Capsule 1 Each PO DAILY Pravastatin Sodium 40 Mg Tablet 40 Mg PO HS Klor-Con M20 (Potassium Chloride) 20 Meq Tab.er.prt 20 Meq PO DAILY Omeprazole 20 Mg Capsule.dr 20 Mg PO DAILY Metoprolol Succinate ( Xl ) (Metoprolol Succinate) 50 Mg Tab.er.24h 50 Mg PO BID Synthroid (Levothyroxine Sodium) 75 Mcg Tablet 75 Mcg PO DAILYAC Lomotil Tablet (Diphenoxylate Hcl/Atropine) 1 Each Tablet 1 Each PO PRN QID PRN Amoxicillin 500 Mg Capsule 500 Mg PO TID Calcium Carbonate 500 Mg/5 Ml Oral.susp 1,250 Mg PO DAILYWSUP Benazepril Hcl 5 Mg Tablet 5 Mg PO DAILY Trazodone Hcl 50 Mg Tablet 50 Mg PO QHS Olanzapine 5 Mg Tablet 5 Mg PO BID Alprazolam 0.25 Mg Tablet 0.25 Mg PO DAILY PRN I have reviewed the current psychotropics carefully including drug interactions. Risk benefit ratio favors no change other than as noted in my dictated progress note. Diagnosis: Problems: (1) Under care of mental health team (2) Anxiety disorder (3) Dementia in Alzheimer's disease with delusions (4) Dementia in Alzheimer's disease with depression (5) Dementia, vascular, with delusions (6) Dementia, vascular, with depression (7) Impulse control disorder (8) Psychosis, atypical (9) Major depressive disorder, recurrent episode JULIAN OLMEDO MD Sep 16, 2018 22:50
[2018-09-17 05:53] VITALS: BP 119/77
[2018-09-17] MEDS: PANTOPRAZOLE 40 MG TABLET. PO SCH (07:48)
[2018-09-17] MEDS: LEVOTHYROXINE 75 MCG TABLET PO SCH (07:48)
[2018-09-17] MEDS: FLUoxetine HCL 10 MG CAPSULE PO SCH (09:15)
[2018-09-17] MEDS: POTASSIUM CHLORIDE 20 MEQ/15 ML ORAL LIQUID. PO SCH (09:15)
[2018-09-17] MEDS: MULTIVITAMIN I-VITE TABLET. PO SCH (09:16)
[2018-09-17] MEDS: METOPROLOL SUCC 24HR ER 50 MG TAB.ER.24H. PO SCH ×2 (09:16→19:35)
[2018-09-17] MEDS: LISINOPRIL 5 MG TABLET. PO SCH (09:16)
--- NOTE | 2018-09-17 15:40 | EKG ---
[address] [address] Test Date: 2018-09-17 Test Time: 10:05:04 Pat Name: ALHAJI MACIAS Department: Room: [address] [place] [address] Gender: F [employer] Services Rep: : 1935 Requested By: ROSEANNE PEDRO Order Number: [id number] Reading MD: Terry Escalante Measurements Intervals [place] Rate: 107 P: -43 LA: 170 QRS: 4 QRSD: 70 T: 18 QT: 380 QTc: 514 Interpretive Statements SINUS TACHYCARDIA OTHERWISE NORMAL ECG RI6.02 Compared to ECG 08/31/2018 17:23:56 No significant changes Electronically Signed On 09-20-2018 17:38:58 CDT by Terry Escalante
[2018-09-17] MEDS: CALCIUM CARBONATE 500 MG TAB.CHEW PO SCH (16:23)
[2018-09-17 16:36] VITALS: BP 103/53
[2018-09-17 19:34] VITALS: BP 106/64
[2018-09-17] MEDS: OLANZapine 10 MG TABLET PO SCH (19:34)
[2018-09-17] MEDS: ATORVASTATIN CALCIUM 10 MG TABLET. PO SCH (19:34)
[2018-09-17] MEDS: traZODone 50 MG TABLET. PO SCH (19:35)
--- NOTE | 2018-09-17 23:11 | PDOC ---
Exam Note: Jeremy Note: Please also refer to the separate dictated note~for this date of service dictated separately.~Patient seen individually. Discussed the patient with Nursing staff reviewed the chart.~Reviewed interim history and current functioning. Reviewed vital signs,~Labs/ Radiology~and current medications noted below. Continue current treatment with the changes noted in the dictated addendum note Assessment: Vital Signs: Vital Signs Date Time Temp Pulse Resp B/P (MAP) Pulse Ox O2 Delivery O2 Flow Rate FiO2 09/17/18 19:35 84 106/64 09/17/18 16:36 98.5 16 98 09/17/18 05:53 99.0 09/16/18 15:56 Room Air I&O Intake and Output 09/17/18 06:59 Intake Total 1400 ml Balance 1400 ml Intake Oral 1400 ml Current Medications: Meds: Current Medications Acetaminophen (Tylenol) 500 mg 1X ONCE PO Last administered on 08/31/18 17:30; Start 08/31/18 at 17:30; Stop 08/31/18 at 17:37; Status DC Acetaminophen (Tylenol) 650 mg PRN Q6HRS PRN PO PAIN / TEMP Last administered on 09/16/18at 07:44; Start 08/31/18 at 19:45 Multi-Ingredient Ointment (Analgesic [place]) 1 duke PRN QID PRN TP MUSCLE PAIN; Start 08/31/18 at 19:45 Al Hydroxide/Mg Hydroxide (Mylanta Plus Xs) 15 ml PRN AFTMEALHC PRN PO DYSPEPSIA; Start 08/31/18 at 19:45 Magnesium Hydroxide (Milk Of Magnesia) 2,400 mg PRN QHS PRN PO CONSTIPATION; Start 08/31/18 at 19:45 Alprazolam (Xanax) 0.25 mg PRN DAILY PRN PO ANXIETY / AGITATION Last administered on 09/11/18at 08:11; Start 08/31/18 at 22:00 Olanzapine (ZyPREXA) 5 mg BID PO Last administered on 09/12/18at 20:06; Start 09/01/18 at 09:00; Stop 09/12/18 at 23:00; Status DC Trazodone HCl (Desyrel) 50 mg QHS PO Last administered on 09/17/18at 19:35; Start 09/01/18 at 21:00 Levothyroxine Sodium (Synthroid) 75 mcg DAILYAC PO Last administered on 09/17/18 07:48; Start 09/01/18 at 07:30 Potassium Chloride (Klor-Con) 20 meq DAILYWBKFT PO Last administered on 09/11/18 08:12; Start 09/01/18 at 08:00; Stop 09/11/18 at 15:24; Status DC Non-Formulary Medication (Amoxicillin ) 500 mg TID PO ; Start 09/01/18 at 09:00; Stop 09/01/18 at 09:00; Status DC Lisinopril (Prinivil) 5 mg DAILY PO Last administered on 09/17/18 09:16; Start 09/01/18 at 09:00 Calcium Carbonate/ Glycine (Tums) 1,250 mg DAILYWSUP PO Last administered on 09/17/18 16:23; Start 09/01/18 at 17:00 Diphenoxylate HCl/ Atropine (Lomotil) 1 tab PRN QID PRN PO DIARRHEA; Start 08/31/18 at 22:15 Metoprolol Succinate (Toprol Xl) 50 mg BID PO Last administered on 09/17/18 19:35; Start 09/01/18 at 09:00 Pantoprazole Sodium (Protonix) 40 mg DAILYAC PO Last administered on 09/17/18 07:48; Start 09/01/18 at 07:30 Pravastatin Sodium (Pravachol) 40 mg QHS PO Last administered on 09/04/18 20:12; Start 09/01/18 at 21:00; Stop 09/05/18 at 20:20; Status DC Multivitamins/ Minerals (I-Delgado) 1 tab DAILY PO Last administered on 09/17/18 09:16; Start 09/01/18 at 09:00 Trazodone HCl (Desyrel) 50 mg PRN QHS PRN PO INSOMNIA Last administered on 09/10/18 00:23; Start 09/03/18 at 12:15 Atorvastatin Calcium (Lipitor) 10 mg QHS PO Last administered on 09/17/18 19:34; Start 09/05/18 at 21:00 Potassium Chloride (KCl Oral Soln) 20 meq DAILY PO Last administered on 09/17/18 09:15; Start 09/12/18 at 09:00 Olanzapine (ZyPREXA) 10 mg QHS PO Last administered on 09/17/18at 19:34; Start 09/13/18 at 21:00 Fluoxetine HCl (PROzac) 10 mg DAILY PO Last administered on 09/17/18at 09:15; Start 09/15/18 at 09:00 Active Scripts Active Reported Preservision Areds Softgel (Vit A/Vit C/Vit E/Zinc/Copper) 1 Each Capsule 1 Each PO DAILY Pravastatin Sodium 40 Mg Tablet 40 Mg PO HS Klor-Con M20 (Potassium Chloride) 20 Meq Tab.er.prt 20 Meq PO DAILY Omeprazole 20 Mg Capsule.dr 20 Mg PO DAILY Metoprolol Succinate ( Xl ) (Metoprolol Succinate) 50 Mg Tab.er.24h 50 Mg PO BID Synthroid (Levothyroxine Sodium) 75 Mcg Tablet 75 Mcg PO DAILYAC Lomotil Tablet (Diphenoxylate Hcl/Atropine) 1 Each Tablet 1 Each PO PRN QID PRN Amoxicillin 500 Mg Capsule 500 Mg PO TID Calcium Carbonate 500 Mg/5 Ml Oral.susp 1,250 Mg PO DAILYWSUP Benazepril Hcl 5 Mg Tablet 5 Mg PO DAILY Trazodone Hcl 50 Mg Tablet 50 Mg PO QHS Olanzapine 5 Mg Tablet 5 Mg PO BID Alprazolam 0.25 Mg Tablet 0.25 Mg PO DAILY PRN I have reviewed the current psychotropics carefully including drug interactions. Risk benefit ratio favors no change other than as noted in my dictated progress note. Diagnosis: Problems: (1) Under care of mental health team (2) Anxiety disorder (3) Dementia in Alzheimer's disease with delusions (4) Dementia in Alzheimer's disease with depression (5) Dementia, vascular, with delusions (6) Dementia, vascular, with depression (7) Impulse control disorder (8) Psychosis, atypical (9) Major depressive disorder, recurrent episode JULIAN OLMEDO MD Sep 17, 2018 23:11
[2018-09-18 05:44] VITALS: BP 105/65
[2018-09-18] MEDS: LEVOTHYROXINE 75 MCG TABLET PO SCH (08:10)
[2018-09-18] MEDS: PANTOPRAZOLE 40 MG TABLET. PO SCH (08:10)
[2018-09-18] MEDS: POTASSIUM CHLORIDE 20 MEQ/15 ML ORAL LIQUID. PO SCH (08:10)
[2018-09-18] MEDS: MULTIVITAMIN I-VITE TABLET. PO SCH (08:10)
[2018-09-18] MEDS: FLUoxetine HCL 10 MG CAPSULE PO SCH (08:11)
[2018-09-18] MEDS: METOPROLOL SUCC 24HR ER 50 MG TAB.ER.24H. PO SCH ×2 (09:00→20:12)
[2018-09-18] MEDS: LISINOPRIL 5 MG TABLET. PO SCH (09:00)
[2018-09-18 16:46] VITALS: BP 100/58
[2018-09-18] MEDS: CALCIUM CARBONATE 500 MG TAB.CHEW PO SCH (16:57)
[2018-09-18] MEDS: ATORVASTATIN CALCIUM 10 MG TABLET. PO SCH (20:08)
[2018-09-18] MEDS: OLANZapine 10 MG TABLET PO SCH (20:08)
[2018-09-18] MEDS: traZODone 50 MG TABLET. PO SCH (20:08)
--- NOTE | 2018-09-18 20:25 | PN ---
DATE: 09/15/2018 PSYCHIATRIC PROGRESS NOTE This late entry 09/15/2018 covers elements not covered in my initial note. SUBJECTIVE: I met with the patient at length in her room in the evening. The patient slept 2-1/4 hours previous night, but did not receive the repeat trazodone. She still complains of hearing "music in my head" with auditory hallucinations. REVIEW OF SYSTEMS: No CV, , pulmonary, eye system symptoms on review. She is hard of hearing with cochlear implant. MENTAL STATUS EXAM: Oriented to herself and situation. Speech is coherent, abstraction fair, computation impaired, language function intact. Mood and affect remain somewhat anxious, withdrawn. LABORATORY DATA: Reviewed. IMPRESSION: Unchanged from initial note. PLAN: No change from initial note and we have initiated Prozac for OCD, anxiety symptoms. Rest unchanged. MAN Kathy OLMEDO MD DR: PREETI/thomas JOB#: [id number] / [id number]
--- NOTE | 2018-09-18 20:54 | PN ---
DATE: 09/16/2018 PSYCHIATRIC PROGRESS NOTE This late entry 09/16/2018 covers elements not covered in my initial note. SUBJECTIVE: I met with the patient in the evening. The patient slept 5-1/2 hours previous night. She has been withdrawn, but as I met with in her room, she stated the voices had gone away. This is a change for her. REVIEW OF SYSTEMS: Hard of hearing. No CV, , pulmonary, eye system symptoms on review. MENTAL STATUS EXAM: Oriented to herself and situation. Speech has some latency, coherent. Abstraction fair, computation impaired, language function intact, attention span short. Mood and affect somewhat withdrawn. LABORATORY DATA: Reviewed. IMPRESSION: Unchanged from initial note. PLAN: No change from initial note. Maintain the Prozac together with continuing Zyprexa, trazodone, and Xanax as once daily. MAN Kathy OLMEDO MD DR: PREETI/thomas JOB#: [id number] / [id number]
--- NOTE | 2018-09-18 21:44 | PN ---
DATE: 09/17/2018 PSYCHIATRIC PROGRESS NOTE This late entry 09/17/2018 covers elements not covered in my initial note. SUBJECTIVE: I met with the patient in the evening. The patient slept 7-1/2 hours previous night. She continues to state that the voices have resolved, which is quite an improvement. REVIEW OF SYSTEMS: Hard of hearing, has a cochlear implant. No CV, , pulmonary, eye system symptoms on review. MENTAL STATUS EXAM: Oriented to herself and situation. Speech has some latency, coherent. Abstraction fair, computation impaired, language function intact, attention span short. Mood and affect somewhat withdrawn. LABORATORY DATA: Reviewed. IMPRESSION: Unchanged from initial note. PLAN: No change from initial note. JULIAN OLMEDO MD DR: PREETI/thomas JOB#: [id number] / [id number]
--- NOTE | 2018-09-18 22:40 | PDOC ---
Exam Note: Jeremy Note: Please also refer to the separate dictated note~for this date of service dictated separately.~Patient seen individually. Discussed the patient with Nursing staff reviewed the chart.~Reviewed interim history and current functioning. Reviewed vital signs,~Labs/ Radiology~and current medications noted below. Continue current treatment with the changes noted in the dictated addendum note Assessment: Vital Signs: Vital Signs Date Time Temp Pulse Resp B/P (MAP) Pulse Ox O2 Delivery O2 Flow Rate FiO2 09/18/18 20:12 74 120/72 09/18/18 16:46 97.6 18 96 09/17/18 05:53 99.0 09/16/18 15:56 Room Air I&O Intake and Output 09/18/18 07:00 Intake Total 1080 ml Balance 1080 ml Intake Oral 1080 ml Current Medications: Meds: Current Medications Acetaminophen (Tylenol) 500 mg 1X ONCE PO Last administered on 08/31/18 17:30; Start 08/31/18 at 17:30; Stop 08/31/18 at 17:37; Status DC Acetaminophen (Tylenol) 650 mg PRN Q6HRS PRN PO PAIN / TEMP Last administered on 09/16/18at 07:44; Start 08/31/18 at 19:45 Multi-Ingredient Ointment (Analgesic [place]) 1 duke PRN QID PRN TP MUSCLE PAIN; Start 08/31/18 at 19:45 Al Hydroxide/Mg Hydroxide (Mylanta Plus Xs) 15 ml PRN AFTMEALHC PRN PO DYSPEPSIA; Start 08/31/18 at 19:45 Magnesium Hydroxide (Milk Of Magnesia) 2,400 mg PRN QHS PRN PO CONSTIPATION; Start 08/31/18 at 19:45 Alprazolam (Xanax) 0.25 mg PRN DAILY PRN PO ANXIETY / AGITATION Last administered on 09/11/18at 08:11; Start 08/31/18 at 22:00 Olanzapine (ZyPREXA) 5 mg BID PO Last administered on 09/12/18at 20:06; Start 09/01/18 at 09:00; Stop 09/12/18 at 23:00; Status DC Trazodone HCl (Desyrel) 50 mg QHS PO Last administered on 09/18/18at 20:08; Start 09/01/18 at 21:00 Levothyroxine Sodium (Synthroid) 75 mcg DAILYAC PO Last administered on 09/18/18 08:10; Start 09/01/18 at 07:30 Potassium Chloride (Klor-Con) 20 meq DAILYWBKFT PO Last administered on 09/11/18 08:12; Start 09/01/18 at 08:00; Stop 09/11/18 at 15:24; Status DC Non-Formulary Medication (Amoxicillin ) 500 mg TID PO ; Start 09/01/18 at 09:00; Stop 09/01/18 at 09:00; Status DC Lisinopril (Prinivil) 5 mg DAILY PO Last administered on 09/17/18 09:16; Start 09/01/18 at 09:00 Calcium Carbonate/ Glycine (Tums) 1,250 mg DAILYWSUP PO Last administered on 09/18/18 16:57; Start 09/01/18 at 17:00 Diphenoxylate HCl/ Atropine (Lomotil) 1 tab PRN QID PRN PO DIARRHEA; Start 08/31/18 at 22:15 Metoprolol Succinate (Toprol Xl) 50 mg BID PO Last administered on 09/18/18 20:12; Start 09/01/18 at 09:00 Pantoprazole Sodium (Protonix) 40 mg DAILYAC PO Last administered on 09/18/18 08:10; Start 09/01/18 at 07:30 Pravastatin Sodium (Pravachol) 40 mg QHS PO Last administered on 09/04/18 20:12; Start 09/01/18 at 21:00; Stop 09/05/18 at 20:20; Status DC Multivitamins/ Minerals (I-Delgado) 1 tab DAILY PO Last administered on 09/18/18 08:10; Start 09/01/18 at 09:00 Trazodone HCl (Desyrel) 50 mg PRN QHS PRN PO INSOMNIA Last administered on 09/10/18 00:23; Start 09/03/18 at 12:15 Atorvastatin Calcium (Lipitor) 10 mg QHS PO Last administered on 09/18/18 20:08; Start 09/05/18 at 21:00 Potassium Chloride (KCl Oral Soln) 20 meq DAILY PO Last administered on 09/18/18 08:10; Start 09/12/18 at 09:00 Olanzapine (ZyPREXA) 10 mg QHS PO Last administered on 09/18/18at 20:08; Start 09/13/18 at 21:00 Fluoxetine HCl (PROzac) 10 mg DAILY PO Last administered on 09/18/18at 08:11; Start 09/15/18 at 09:00 Active Scripts Active Reported Preservision Areds Softgel (Vit A/Vit C/Vit E/Zinc/Copper) 1 Each Capsule 1 Each PO DAILY Pravastatin Sodium 40 Mg Tablet 40 Mg PO HS Klor-Con M20 (Potassium Chloride) 20 Meq Tab.er.prt 20 Meq PO DAILY Omeprazole 20 Mg Capsule.dr 20 Mg PO DAILY Metoprolol Succinate ( Xl ) (Metoprolol Succinate) 50 Mg Tab.er.24h 50 Mg PO BID Synthroid (Levothyroxine Sodium) 75 Mcg Tablet 75 Mcg PO DAILYAC Lomotil Tablet (Diphenoxylate Hcl/Atropine) 1 Each Tablet 1 Each PO PRN QID PRN Amoxicillin 500 Mg Capsule 500 Mg PO TID Calcium Carbonate 500 Mg/5 Ml Oral.susp 1,250 Mg PO DAILYWSUP Benazepril Hcl 5 Mg Tablet 5 Mg PO DAILY Trazodone Hcl 50 Mg Tablet 50 Mg PO QHS Olanzapine 5 Mg Tablet 5 Mg PO BID Alprazolam 0.25 Mg Tablet 0.25 Mg PO DAILY PRN I have reviewed the current psychotropics carefully including drug interactions. Risk benefit ratio favors no change other than as noted in my dictated progress note. Diagnosis: Problems: (1) Under care of mental health team (2) Anxiety disorder (3) Dementia in Alzheimer's disease with delusions (4) Dementia in Alzheimer's disease with depression (5) Dementia, vascular, with delusions (6) Dementia, vascular, with depression (7) Impulse control disorder (8) Psychosis, atypical (9) Major depressive disorder, recurrent episode JULIAN OLMEDO MD Sep 18, 2018 22:40
[2018-09-19 06:19] VITALS: BP 114/69
[2018-09-19 07:07] LABS: BASO # 0.1 x10^3/uL (0.0-0.2); BASO % 1 % (0-3); EOS # 0.1 x10^3/uL (0.0-0.7); EOS % 1 % (0-3); HEMATOCRIT 33.8 % (36.0-47.0); HEMOGLOBIN 11.7 g/dL (12.0-15.5); LYMPH # 1.1 x10^3/uL (1.0-4.8); LYMPH % 23 % (24-48); MEAN CORPUSCULAR HEMOGLOBIN 33 pg (25-35); MEAN CORPUSCULAR HGB CONC 35 g/dL (31-37); MEAN CORPUSCULAR VOLUME 95 fL (79-100); MONO # 0.4 x10^3/uL (0.0-1.1); MONO % 7 % (0-9); NEUT # 3.2 x10^3uL (1.8-7.7); NEUT % 67 % (31-73); PLATELET COUNT 144 x10^3/uL (140-400); RED BLOOD COUNT 3.55 x10^6/uL (3.50-5.40); WHITE BLOOD COUNT 4.8 x10^3/uL (4.0-11.0)
[2018-09-19 07:20] LABS: ALBUMIN 2.9 g/dL (3.4-5.0); ALBUMIN/GLOBULIN RATIO 0.7 (1.0-1.7); CALCIUM 8.8 mg/dL (8.5-10.1); CREATININE 1.3 mg/dL (0.6-1.0); GFR 39.3; POTASSIUM 4.3 mmol/L (3.5-5.1); TOTAL BILIRUBIN 0.5 mg/dL (0.2-1.0); TOTAL PROTEIN 6.9 g/dL (6.4-8.2)
[2018-09-19] MEDS: LEVOTHYROXINE 75 MCG TABLET PO SCH (08:59)
[2018-09-19] MEDS: POTASSIUM CHLORIDE 20 MEQ/15 ML ORAL LIQUID. PO SCH (08:59)
[2018-09-19] MEDS: PANTOPRAZOLE 40 MG TABLET. PO SCH (08:59)
[2018-09-19] MEDS: FLUoxetine HCL 10 MG CAPSULE PO SCH (08:59)
[2018-09-19] MEDS: METOPROLOL SUCC 24HR ER 50 MG TAB.ER.24H. PO SCH ×2 (09:00→19:58)
[2018-09-19] MEDS: MULTIVITAMIN I-VITE TABLET. PO SCH (09:00)
[2018-09-19] MEDS: LISINOPRIL 5 MG TABLET. PO SCH (09:01)
[2018-09-19 15:59] VITALS: BP 131/79
[2018-09-19] MEDS: CALCIUM CARBONATE 500 MG TAB.CHEW PO SCH (16:10)
[2018-09-19] MEDS: ATORVASTATIN CALCIUM 10 MG TABLET. PO SCH (19:58)
[2018-09-19] MEDS: OLANZapine 10 MG TABLET PO SCH (19:58)
[2018-09-19] MEDS: traZODone 50 MG TABLET. PO SCH (19:58)
--- NOTE | 2018-09-19 21:07 | PN ---
DATE: 09/18/2018 PSYCHIATRIC PROGRESS NOTE This late entry 09/18/2018 covers elements not covered in my initial note. SUBJECTIVE: I met with the patient in the evening in her room at some length. The patient slept 6-1/2 hours previous night. She told the nursing staff she was having no auditory hallucinations, but when I questioned her, she said these are much better, but she had them slightly today, but no command hallucinations. The patient's had left me a detailed handwritten note indicating that he felt she had not had any auditory hallucinations for about 7 days. She is withdrawn, spends much time in her room, sleeping. No CV, , pulmonary, eye system symptoms on review. Hard of hearing. MENTAL STATUS EXAM: Oriented to herself and situation. Speech is coherent, has some latency. Abstraction fair, computation impaired, language function intact, attention span short. Mood and affect somewhat withdrawn. LABORATORY DATA: Reviewed. IMPRESSION: Unchanged from initial note. PLAN: No change from initial note. MAN Kathy OLMEDO MD DR: PREETI/thomas JOB#: [id number] / [id number]
--- NOTE | 2018-09-19 21:42 | PDOC ---
Exam Note: Jeremy Note: Please also refer to the separate dictated note~for this date of service dictated separately.~Patient seen individually. Discussed the patient with Nursing staff reviewed the chart.~Reviewed interim history and current functioning. Reviewed vital signs,~Labs/ Radiology~and current medications noted below. Continue current treatment with the changes noted in the dictated addendum note Assessment: Vital Signs: Vital Signs Date Time Temp Pulse Resp B/P (MAP) Pulse Ox O2 Delivery O2 Flow Rate FiO2 09/19/18 19:58 76 131/79 09/19/18 15:59 97.8 16 95 Room Air 09/17/18 05:53 99.0 I&O Intake and Output 09/19/18 07:00 Intake Total 840 ml Balance 840 ml Intake Oral 840 ml Labs: Laboratory Tests Test 09/19/18 06:35 White Blood Count 4.8 x10^3/uL (4.0-11.0) Red Blood Count 3.55 x10^6/uL (3.50-5.40) Hemoglobin 11.7 g/dL (12.0-15.5) L Hematocrit 33.8 % (36.0-47.0) L Mean Corpuscular Volume 95 fL (79-100) Mean Corpuscular Hemoglobin 33 pg (25-35) Mean Corpuscular Hemoglobin Concent 35 g/dL (31-37) Red Cell Distribution Width 16.0 % (11.5-14.5) H Platelet Count 144 x10^3/uL (140-400) Neutrophils (%) (Auto) 67 % (31-73) Lymphocytes (%) (Auto) 23 % (24-48) L Monocytes (%) (Auto) 7 % (0-9) Eosinophils (%) (Auto) 1 % (0-3) Basophils (%) (Auto) 1 % (0-3) Neutrophils # (Auto) 3.2 x10^3uL (1.8-7.7) Lymphocytes # (Auto) 1.1 x10^3/uL (1.0-4.8) Monocytes # (Auto) 0.4 x10^3/uL (0.0-1.1) Eosinophils # (Auto) 0.1 x10^3/uL (0.0-0.7) Basophils # (Auto) 0.1 x10^3/uL (0.0-0.2) Sodium Level 140 mmol/L (136-145) Potassium Level 4.3 mmol/L (3.5-5.1) Chloride Level 104 mmol/L (98-107) Carbon Dioxide Level 29 mmol/L (21-32) Anion Gap 7 (6-14) Blood Urea Nitrogen 18 mg/dL (7-20) Creatinine 1.3 mg/dL (0.6-1.0) H Estimated GFR (Cockcroft-Gault) 39.3 BUN/Creatinine Ratio 14 (6-20) Glucose Level 94 mg/dL (70-99) Calcium Level 8.8 mg/dL (8.5-10.1) Total Bilirubin 0.5 mg/dL (0.2-1.0) Aspartate Amino Transferase (AST) 23 U/L (15-37) Alanine Aminotransferase (ALT) 24 U/L (14-59) Alkaline Phosphatase 71 U/L (46-116) Total Protein 6.9 g/dL (6.4-8.2) Albumin 2.9 g/dL (3.4-5.0) L Albumin/Globulin Ratio 0.7 (1.0-1.7) L Current Medications: Meds: Current Medications Acetaminophen (Tylenol) 500 mg 1X ONCE PO Last administered on 08/31/18at 17:30; Start 08/31/18 at 17:30; Stop 08/31/18 at 17:37; Status DC Acetaminophen (Tylenol) 650 mg PRN Q6HRS PRN PO PAIN / TEMP Last administered on 09/16/18at 07:44; Start 08/31/18 at 19:45 Multi-Ingredient Ointment (Analgesic [place]) 1 duke PRN QID PRN TP MUSCLE PAIN; Start 08/31/18 at 19:45 Al Hydroxide/Mg Hydroxide (Mylanta Plus Xs) 15 ml PRN AFTMEALHC PRN PO DYSPEPSIA; Start 08/31/18 at 19:45 Magnesium Hydroxide (Milk Of Magnesia) 2,400 mg PRN QHS PRN PO CONSTIPATION; Start 08/31/18 at 19:45 Alprazolam (Xanax) 0.25 mg PRN DAILY PRN PO ANXIETY / AGITATION Last administered on 09/11/18at 08:11; Start 08/31/18 at 22:00 Olanzapine (ZyPREXA) 5 mg BID PO Last administered on 09/12/18 20:06; Start 09/01/18 at 09:00; Stop 09/12/18 at 23:00; Status DC Trazodone HCl (Desyrel) 50 mg QHS PO Last administered on 09/19/18 19:58; Start 09/01/18 at 21:00 Levothyroxine Sodium (Synthroid) 75 mcg DAILYAC PO Last administered on 09/19/18 08:59; Start 09/01/18 at 07:30 Potassium Chloride (Klor-Con) 20 meq DAILYWBKFT PO Last administered on 09/11/18 08:12; Start 09/01/18 at 08:00; Stop 09/11/18 at 15:24; Status DC Non-Formulary Medication (Amoxicillin ) 500 mg TID PO ; Start 09/01/18 at 09:00; Stop 09/01/18 at 09:00; Status DC Lisinopril (Prinivil) 5 mg DAILY PO Last administered on 09/19/18 09:01; Start 09/01/18 at 09:00 Calcium Carbonate/ Glycine (Tums) 1,250 mg DAILYWSUP PO Last administered on 09/19/18 16:10; Start 09/01/18 at 17:00 Diphenoxylate HCl/ Atropine (Lomotil) 1 tab PRN QID PRN PO DIARRHEA; Start 08/31/18 at 22:15 Metoprolol Succinate (Toprol Xl) 50 mg BID PO Last administered on 09/19/18 19:58; Start 09/01/18 at 09:00 Pantoprazole Sodium (Protonix) 40 mg DAILYAC PO Last administered on 09/19/18 08:59; Start 09/01/18 at 07:30 Pravastatin Sodium (Pravachol) 40 mg QHS PO Last administered on 09/04/18 20:12; Start 09/01/18 at 21:00; Stop 09/05/18 at 20:20; Status DC Multivitamins/ Minerals (I-Delgado) 1 tab DAILY PO Last administered on 09/19/18 09:00; Start 09/01/18 at 09:00 Trazodone HCl (Desyrel) 50 mg PRN QHS PRN PO INSOMNIA Last administered on 00:23; Start 09/03/18 at 12:15 Atorvastatin Calcium (Lipitor) 10 mg QHS PO Last administered on 09/19/18 19:58; Start 09/05/18 at 21:00 Potassium Chloride (KCl Oral Soln) 20 meq DAILY PO Last administered on 09/19/18 08:59; Start 09/12/18 at 09:00 Olanzapine (ZyPREXA) 10 mg QHS PO Last administered on 09/19/18 19:58; Start 09/13/18 at 21:00 Fluoxetine HCl (PROzac) 10 mg DAILY PO Last administered on 09/19/18 08:59; Start 09/15/18 at 09:00 Active Scripts Active Reported Preservision Areds Softgel (Vit A/Vit C/Vit E/Zinc/Copper) 1 Each Capsule 1 Each PO DAILY Pravastatin Sodium 40 Mg Tablet 40 Mg PO HS Klor-Con M20 (Potassium Chloride) 20 Meq Tab.er.prt 20 Meq PO DAILY Omeprazole 20 Mg Capsule.dr 20 Mg PO DAILY Metoprolol Succinate ( Xl ) (Metoprolol Succinate) 50 Mg Tab.er.24h 50 Mg PO BID Synthroid (Levothyroxine Sodium) 75 Mcg Tablet 75 Mcg PO DAILYAC Lomotil Tablet (Diphenoxylate Hcl/Atropine) 1 Each Tablet 1 Each PO PRN QID PRN Amoxicillin 500 Mg Capsule 500 Mg PO TID Calcium Carbonate 500 Mg/5 Ml Oral.susp 1,250 Mg PO DAILYWSUP Benazepril Hcl 5 Mg Tablet 5 Mg PO DAILY Trazodone Hcl 50 Mg Tablet 50 Mg PO QHS Olanzapine 5 Mg Tablet 5 Mg PO BID Alprazolam 0.25 Mg Tablet 0.25 Mg PO DAILY PRN I have reviewed the current psychotropics carefully including drug interactions. Risk benefit ratio favors no change other than as noted in my dictated progress note. Diagnosis: Problems: (1) Under care of mental health team (2) Anxiety disorder (3) Dementia in Alzheimer's disease with delusions (4) Dementia in Alzheimer's disease with depression (5) Dementia, vascular, with delusions (6) Dementia, vascular, with depression (7) Impulse control disorder (8) Psychosis, atypical (9) Major depressive disorder, recurrent episode JULIAN OLMEDO MD Sep 19, 2018 21:42
[2018-09-20 06:28] VITALS: BP 110/67
[2018-09-20] MEDS: PANTOPRAZOLE 40 MG TABLET. PO SCH (08:00)
[2018-09-20] MEDS: POTASSIUM CHLORIDE 20 MEQ/15 ML ORAL LIQUID. PO SCH (08:30)
[2018-09-20] MEDS: LEVOTHYROXINE 75 MCG TABLET PO SCH (08:30)
[2018-09-20] MEDS: LISINOPRIL 5 MG TABLET. PO SCH (08:30)
[2018-09-20] MEDS: MULTIVITAMIN I-VITE TABLET. PO SCH (08:30)
[2018-09-20] MEDS: METOPROLOL SUCC 24HR ER 50 MG TAB.ER.24H. PO SCH ×2 (08:35→19:55)
[2018-09-20] MEDS: FLUoxetine HCL 10 MG CAPSULE PO SCH (08:35)
[2018-09-20 15:49] VITALS: BP 113/64
[2018-09-20] MEDS: CALCIUM CARBONATE 500 MG TAB.CHEW PO SCH (16:39)
[2018-09-20] MEDS: ATORVASTATIN CALCIUM 10 MG TABLET. PO SCH (19:47)
[2018-09-20] MEDS: traZODone 50 MG TABLET. PO SCH (19:47)
[2018-09-20] MEDS: OLANZapine 10 MG TABLET PO SCH (19:51)
[2018-09-20 19:59] VITALS: BP 94/61
--- NOTE | 2018-09-20 21:54 | PN ---
DATE: 09/19/2018 PSYCHIATRIC PROGRESS NOTE This late entry 09/19/2018 covers elements not covered in my initial note. SUBJECTIVE: I met with the patient in the evening in her room at length. She slept 9 hours previous night. Her visited. She has been isolative and gave some feedback on his visit, felt she was doing "wonderful." She has some intermittent auditory hallucinations, but much improved. REVIEW OF SYSTEMS: Hard of hearing. No CV, , pulmonary, eye system symptoms on review. MENTAL STATUS EXAM: Oriented to herself and situation. Speech has some latency, coherent. Abstraction fair, computation impaired, language function intact, attention span short. Mood and affect, withdrawn. LABORATORY DATA: Reviewed. IMPRESSION: Unchanged from initial note. PLAN: No change from initial note and we may need to increase Zyprexa further, but for now she is doing better at current dosage. MAN Kathy OLMEDO MD DR: PREETI/thomas JOB#: [id number] / [id number]
--- NOTE | 2018-09-20 23:11 | PDOC ---
Exam Note: Jeremy Note: Please also refer to the separate dictated note~for this date of service dictated separately.~Patient seen individually. Discussed the patient with Nursing staff reviewed the chart.~Reviewed interim history and current functioning. Reviewed vital signs,~Labs/ Radiology~and current medications noted below. Continue current treatment with the changes noted in the dictated addendum note Assessment: Vital Signs: Vital Signs Date Time Temp Pulse Resp B/P (MAP) Pulse Ox O2 Delivery O2 Flow Rate FiO2 09/20/18 19:59 63 94/61 (72) 97 Room Air 09/20/18 15:49 98.2 18 09/17/18 05:53 99.0 I&O Intake and Output 09/20/18 06:59 Intake Total 720 ml Balance 720 ml Intake Oral 720 ml # Voids 1 Current Medications: Meds: Current Medications Acetaminophen (Tylenol) 500 mg 1X ONCE PO Last administered on 08/31/18at 17:30; Start 08/31/18 at 17:30; Stop 08/31/18 at 17:37; Status DC Acetaminophen (Tylenol) 650 mg PRN Q6HRS PRN PO PAIN / TEMP Last administered on 09/16/18at 07:44; Start 08/31/18 at 19:45 Multi-Ingredient Ointment (Analgesic [place]) 1 duke PRN QID PRN TP MUSCLE PAIN; Start 08/31/18 at 19:45 Al Hydroxide/Mg Hydroxide (Mylanta Plus Xs) 15 ml PRN AFTMEALHC PRN PO DYSPEPSIA; Start 08/31/18 at 19:45 Magnesium Hydroxide (Milk Of Magnesia) 2,400 mg PRN QHS PRN PO CONSTIPATION; Start 08/31/18 at 19:45 Alprazolam (Xanax) 0.25 mg PRN DAILY PRN PO ANXIETY / AGITATION Last administered on 09/11/18at 08:11; Start 08/31/18 at 22:00 Olanzapine (ZyPREXA) 5 mg BID PO Last administered on 09/12/18at 20:06; Start 09/01/18 at 09:00; Stop 09/12/18 at 23:00; Status DC Trazodone HCl (Desyrel) 50 mg QHS PO Last administered on 09/20/18at 19:47; Start 09/01/18 at 21:00 Levothyroxine Sodium (Synthroid) 75 mcg DAILYAC PO Last administered on 09/20/18 08:30; Start 09/01/18 at 07:30 Potassium Chloride (Klor-Con) 20 meq DAILYWBKFT PO Last administered on 09/11/18 08:12; Start 09/01/18 at 08:00; Stop 09/11/18 at 15:24; Status DC Non-Formulary Medication (Amoxicillin ) 500 mg TID PO ; Start 09/01/18 at 09:00; Stop 09/01/18 at 09:00; Status DC Lisinopril (Prinivil) 5 mg DAILY PO Last administered on 09/20/18 08:30; Start 09/01/18 at 09:00 Calcium Carbonate/ Glycine (Tums) 1,250 mg DAILYWSUP PO Last administered on 09/20/18 16:39; Start 09/01/18 at 17:00 Diphenoxylate HCl/ Atropine (Lomotil) 1 tab PRN QID PRN PO DIARRHEA; Start 08/31/18 at 22:15 Metoprolol Succinate (Toprol Xl) 50 mg BID PO Last administered on 09/20/18 08:35; Start 09/01/18 at 09:00 Pantoprazole Sodium (Protonix) 40 mg DAILYAC PO Last administered on 09/20/18 08:00; Start 09/01/18 at 07:30 Pravastatin Sodium (Pravachol) 40 mg QHS PO Last administered on 09/04/18 20:12; Start 09/01/18 at 21:00; Stop 09/05/18 at 20:20; Status DC Multivitamins/ Minerals (I-Delgado) 1 tab DAILY PO Last administered on 09/20/18 08:30; Start 09/01/18 at 09:00 Trazodone HCl (Desyrel) 50 mg PRN QHS PRN PO INSOMNIA Last administered on 09/10/18 00:23; Start 09/03/18 at 12:15 Atorvastatin Calcium (Lipitor) 10 mg QHS PO Last administered on 09/20/18 19:47; Start 09/05/18 at 21:00 Potassium Chloride (KCl Oral Soln) 20 meq DAILY PO Last administered on 09/20/18 08:30; Start 09/12/18 at 09:00 Olanzapine (ZyPREXA) 10 mg QHS PO Last administered on 09/20/18at 19:51; Start 09/13/18 at 21:00 Fluoxetine HCl (PROzac) 10 mg DAILY PO Last administered on 09/20/18at 08:35; Start 09/15/18 at 09:00 Active Scripts Active Reported Preservision Areds Softgel (Vit A/Vit C/Vit E/Zinc/Copper) 1 Each Capsule 1 Each PO DAILY Pravastatin Sodium 40 Mg Tablet 40 Mg PO HS Klor-Con M20 (Potassium Chloride) 20 Meq Tab.er.prt 20 Meq PO DAILY Omeprazole 20 Mg Capsule.dr 20 Mg PO DAILY Metoprolol Succinate ( Xl ) (Metoprolol Succinate) 50 Mg Tab.er.24h 50 Mg PO BID Synthroid (Levothyroxine Sodium) 75 Mcg Tablet 75 Mcg PO DAILYAC Lomotil Tablet (Diphenoxylate Hcl/Atropine) 1 Each Tablet 1 Each PO PRN QID PRN Amoxicillin 500 Mg Capsule 500 Mg PO TID Calcium Carbonate 500 Mg/5 Ml Oral.susp 1,250 Mg PO DAILYWSUP Benazepril Hcl 5 Mg Tablet 5 Mg PO DAILY Trazodone Hcl 50 Mg Tablet 50 Mg PO QHS Olanzapine 5 Mg Tablet 5 Mg PO BID Alprazolam 0.25 Mg Tablet 0.25 Mg PO DAILY PRN I have reviewed the current psychotropics carefully including drug interactions. Risk benefit ratio favors no change other than as noted in my dictated progress note. Diagnosis: Problems: (1) Under care of mental health team (2) Anxiety disorder (3) Dementia in Alzheimer's disease with delusions (4) Dementia in Alzheimer's disease with depression (5) Dementia, vascular, with delusions (6) Dementia, vascular, with depression (7) Impulse control disorder (8) Psychosis, atypical (9) Major depressive disorder, recurrent episode JULIAN OLMEDO MD September 20, 2018 23:11
[2018-09-21 05:38] VITALS: BP 123/63
[2018-09-21] MEDS: MULTIVITAMIN I-VITE TABLET. PO SCH (08:02)
[2018-09-21] MEDS: LEVOTHYROXINE 75 MCG TABLET PO SCH (08:02)
[2018-09-21] MEDS: FLUoxetine HCL 10 MG CAPSULE PO SCH (08:02)
[2018-09-21] MEDS: POTASSIUM CHLORIDE 20 MEQ/15 ML ORAL LIQUID. PO SCH (08:02)
[2018-09-21] MEDS: METOPROLOL SUCC 24HR ER 50 MG TAB.ER.24H. PO SCH ×2 (08:03→22:53)
[2018-09-21] MEDS: PANTOPRAZOLE 40 MG TABLET. PO SCH (08:04)
[2018-09-21] MEDS: LISINOPRIL 5 MG TABLET. PO SCH (08:04)
[2018-09-21 16:14] VITALS: BP 133/82
[2018-09-21] MEDS: CALCIUM CARBONATE 500 MG TAB.CHEW PO SCH (16:15)
[2018-09-21] MEDS: ATORVASTATIN CALCIUM 10 MG TABLET. PO SCH (19:21)
[2018-09-21] MEDS: OLANZapine 10 MG TABLET PO SCH (19:21)
[2018-09-21] MEDS: traZODone 50 MG TABLET. PO SCH (19:21)
--- NOTE | 2018-09-21 22:40 | PDOC ---
Exam Note: Jeremy Note: Please also refer to the separate dictated note~for this date of service dictated separately.~Patient seen individually. Discussed the patient with Nursing staff reviewed the chart.~Reviewed interim history and current functioning. Reviewed vital signs,~Labs/ Radiology~and current medications noted below. Continue current treatment with the changes noted in the dictated addendum note Assessment: Vital Signs: Vital Signs Date Time Temp Pulse Resp B/P (MAP) Pulse Ox O2 Delivery O2 Flow Rate FiO2 09/21/18 16:14 97.9 89 19 133/82 (99) 97 09/20/18 19:59 Room Air 09/17/18 05:53 99.0 I&O Intake and Output 09/21/18 07:00 Intake Total 1080 ml Balance 1080 ml Intake Oral 1080 ml # Voids 1 Current Medications: Meds: Current Medications Acetaminophen (Tylenol) 500 mg 1X ONCE PO Last administered on 08/31/18 17:30; Start 08/31/18 at 17:30; Stop 08/31/18 at 17:37; Status DC Acetaminophen (Tylenol) 650 mg PRN Q6HRS PRN PO PAIN / TEMP Last administered on 09/16/18at 07:44; Start 08/31/18 at 19:45 Multi-Ingredient Ointment (Analgesic [place]) 1 duke PRN QID PRN TP MUSCLE PAIN; Start 08/31/18 at 19:45 Al Hydroxide/Mg Hydroxide (Mylanta Plus Xs) 15 ml PRN AFTMEALHC PRN PO DYSPEPSIA; Start 08/31/18 at 19:45 Magnesium Hydroxide (Milk Of Magnesia) 2,400 mg PRN QHS PRN PO CONSTIPATION; Start 08/31/18 at 19:45 Alprazolam (Xanax) 0.25 mg PRN DAILY PRN PO ANXIETY / AGITATION Last administered on 09/11/18at 08:11; Start 08/31/18 at 22:00 Olanzapine (ZyPREXA) 5 mg BID PO Last administered on 09/12/18at 20:06; Start 09/01/18 at 09:00; Stop 09/12/18 at 23:00; Status DC Trazodone HCl (Desyrel) 50 mg QHS PO Last administered on 09/21/18at 19:21; Start 09/01/18 at 21:00 Levothyroxine Sodium (Synthroid) 75 mcg DAILYAC PO Last administered on 09/21/18 08:02; Start 09/01/18 at 07:30 Potassium Chloride (Klor-Con) 20 meq DAILYWBKFT PO Last administered on 09/11/18 08:12; Start 09/01/18 at 08:00; Stop 09/11/18 at 15:24; Status DC Non-Formulary Medication (Amoxicillin ) 500 mg TID PO ; Start 09/01/18 at 09:00; Stop 09/01/18 at 09:00; Status DC Lisinopril (Prinivil) 5 mg DAILY PO Last administered on 09/21/18 08:04; Start 09/01/18 at 09:00 Calcium Carbonate/ Glycine (Tums) 1,250 mg DAILYWSUP PO Last administered on 09/21/18 16:15; Start 09/01/18 at 17:00 Diphenoxylate HCl/ Atropine (Lomotil) 1 tab PRN QID PRN PO DIARRHEA; Start 08/31/18 at 22:15 Metoprolol Succinate (Toprol Xl) 50 mg BID PO Last administered on 09/21/18 0 8:03; Start 09/01/18 at 09:00 Pantoprazole Sodium (Protonix) 40 mg DAILYAC PO Last administered on 09/21/18 08:04; Start 09/01/18 at 07:30 Pravastatin Sodium (Pravachol) 40 mg QHS PO Last administered on 09/04/18at 20:12; Start 09/01/18 at 21:00; Stop 09/05/18 at 20:20; Status DC Multivitamins/ Minerals (I-Delgado) 1 tab DAILY PO Last administered on 09/21/18 08:02; Start 09/01/18 at 09:00 Trazodone HCl (Desyrel) 50 mg PRN QHS PRN PO INSOMNIA Last administered on 09/10/18 00:23; Start 09/03/18 at 12:15 Atorvastatin Calcium (Lipitor) 10 mg QHS PO Last administered on 09/21/18 19:21; Start 09/05/18 at 21:00 Potassium Chloride (KCl Oral Soln) 20 meq DAILY PO Last administered on 09/21/18 08:02; Start 09/12/18 at 09:00 Olanzapine (ZyPREXA) 10 mg QHS PO Last administered on 09/21/18at 19:21; Start 09/13/18 at 21:00 Fluoxetine HCl (PROzac) 10 mg DAILY PO Last administered on 09/21/18at 08:02; Start 09/15/18 at 09:00 Active Scripts Active Reported Preservision Areds Softgel (Vit A/Vit C/Vit E/Zinc/Copper) 1 Each Capsule 1 Each PO DAILY Pravastatin Sodium 40 Mg Tablet 40 Mg PO HS Klor-Con M20 (Potassium Chloride) 20 Meq Tab.er.prt 20 Meq PO DAILY Omeprazole 20 Mg Capsule.dr 20 Mg PO DAILY Metoprolol Succinate ( Xl ) (Metoprolol Succinate) 50 Mg Tab.er.24h 50 Mg PO BID Synthroid (Levothyroxine Sodium) 75 Mcg Tablet 75 Mcg PO DAILYAC Lomotil Tablet (Diphenoxylate Hcl/Atropine) 1 Each Tablet 1 Each PO PRN QID PRN Amoxicillin 500 Mg Capsule 500 Mg PO TID Calcium Carbonate 500 Mg/5 Ml Oral.susp 1,250 Mg PO DAILYWSUP Benazepril Hcl 5 Mg Tablet 5 Mg PO DAILY Trazodone Hcl 50 Mg Tablet 50 Mg PO QHS Olanzapine 5 Mg Tablet 5 Mg PO BID Alprazolam 0.25 Mg Tablet 0.25 Mg PO DAILY PRN I have reviewed the current psychotropics carefully including drug interactions. Risk benefit ratio favors no change other than as noted in my dictated progress note. Diagnosis: Problems: (1) Under care of mental health team (2) Anxiety disorder (3) Dementia in Alzheimer's disease with delusions (4) Dementia in Alzheimer's disease with depression (5) Dementia, vascular, with delusions (6) Dementia, vascular, with depression (7) Impulse control disorder (8) Psychosis, atypical (9) Major depressive disorder, recurrent episode JULIAN OLMEDO MD September 21, 2018 22:40
[2018-09-21] MEDS ORDERED: OLAN10TA9 PO (23:40)
[2018-09-21] MEDS ORDERED: ACET325T9 PO (23:45)
[2018-09-21] MEDS ORDERED: ATOR10TA60 PO (23:46)
[2018-09-21] MEDS ORDERED: LISI-338 PO (23:47)
[2018-09-21] MEDS ORDERED: FLUO10CA13 PO (23:47)
[2018-09-21] MEDS ORDERED: MAG30ORA2 PO (23:48)
[2018-09-21] MEDS ORDERED: MAGN2400 PO (23:49)
[2018-09-21] MEDS ORDERED: METH29OI TP (23:50)
[2018-09-22] MEDS ORDERED: TRAZ-120 PO
[2018-09-22 05:35] VITALS: BP 129/78
[2018-09-22] MEDS: PANTOPRAZOLE 40 MG TABLET. PO SCH (07:48)
[2018-09-22] MEDS: POTASSIUM CHLORIDE 20 MEQ/15 ML ORAL LIQUID. PO SCH (07:48)
[2018-09-22 07:49] VITALS: BP 129/78
[2018-09-22] MEDS: MULTIVITAMIN I-VITE TABLET. PO SCH (07:49)
[2018-09-22] MEDS: LEVOTHYROXINE 75 MCG TABLET PO SCH (07:49)
[2018-09-22] MEDS: FLUoxetine HCL 10 MG CAPSULE PO SCH (07:49)
[2018-09-22] MEDS: METOPROLOL SUCC 24HR ER 50 MG TAB.ER.24H. PO SCH (07:49)
[2018-09-22] MEDS: LISINOPRIL 5 MG TABLET. PO SCH (07:49)
[2018-09-22] MEDS ORDERED: POTA20TA82 PO (09:19)
--- NOTE | 2018-09-22 18:41 | PDOC ---
Exam Note: Jeremy Note: Please also refer to the separate dictated note~for this date of service dictated separately.~Patient seen individually. Discussed the patient with Nursing staff reviewed the chart.~Reviewed interim history and current functioning. Reviewed vital signs,~Labs/ Radiology~and current medications noted below. Continue current treatment with the changes noted in the dictated addendum note Assessment: Vital Signs: Vital Signs Date Time Temp Pulse Resp B/P (MAP) Pulse Ox O2 Delivery O2 Flow Rate FiO2 09/22/18 07:49 78 129/78 09/22/18 05:35 97.5 18 96 09/20/18 19:59 Room Air 09/17/18 05:53 99.0 I&O Intake and Output 09/22/18 07:00 Intake Total 600 ml Balance 600 ml Intake Oral 600 ml Current Medications: Meds: Current Medications Acetaminophen (Tylenol) 500 mg 1X ONCE PO Last administered on 08/31/18at 17:30; Start 08/31/18 at 17:30; Stop 08/31/18 at 17:37; Status DC Acetaminophen (Tylenol) 650 mg PRN Q6HRS PRN PO PAIN / TEMP Last administered on 09/16/18at 07:44; Start 08/31/18 at 19:45; Stop 09/22/18 at 11:12; Status DC Multi-Ingredient Ointment (Analgesic [place]) 1 marsha PRN QID PRN TP MUSCLE PAIN; Start 08/31/18 at 19:45; Stop 09/22/18 at 11:12; Status DC Al Hydroxide/Mg Hydroxide (Mylanta Plus Xs) 15 ml PRN AFTMEALHC PRN PO DYSPEPSIA; Start 08/31/18 at 19:45; Stop 09/22/18 at 11:12; Status DC Magnesium Hydroxide (Milk Of Magnesia) 2,400 mg PRN QHS PRN PO CONSTIPATION; Start 08/31/18 at 19:45; Stop 09/22/18 at 11:12; Status DC Alprazolam (Xanax) 0.25 mg PRN DAILY PRN PO ANXIETY / AGITATION Last administered on 09/11/18at 08:11; Start 08/31/18 at 22:00; Stop 09/22/18 at 11:12; Status DC Olanzapine (ZyPREXA) 5 mg BID PO Last administered on 09/12/18 20:06; Start 09/01/18 at 09:00; Stop 09/12/18 at 23:00; Status DC Trazodone HCl (Desyrel) 50 mg QHS PO Last administered on 09/21/18 19:21; Start 09/01/18 at 21:00; Stop 09/22/18 at 11:12; Status DC Levothyroxine Sodium (Synthroid) 75 mcg DAILYAC PO Last administered on 09/22/18 07:49; Start 09/01/18 at 07:30; Stop 09/22/18 at 11:12; Status DC Potassium Chloride (Klor-Con) 20 meq DAILYWBKFT PO Last administered on 09/11/18 08:12; Start 09/01/18 at 08:00; Stop 09/11/18 at 15:24; Status DC Non-Formulary Medication (Amoxicillin ) 500 mg TID PO ; Start 09/01/18 at 09:00; Stop 09/01/18 at 09:00; Status DC Lisinopril (Prinivil) 5 mg DAILY PO Last administered on 09/22/18 07:49; Start 09/01/18 at 09:00; Stop 09/22/18 at 11:12; Status DC Calcium Carbonate/ Glycine (Tums) 1,250 mg DAILYWSUP PO Last administered on 09/21/18 16:15; Start 09/01/18 at 17:00; Stop 09/22/18 at 11:12; Status DC Diphenoxylate HCl/ Atropine (Lomotil) 1 tab PRN QID PRN PO DIARRHEA; Start 08/31/18 at 22:15; Stop 09/22/18 at 11:13; Status DC Metoprolol Succinate (Toprol Xl) 50 mg BID PO Last administered on 09/22/18 07:49; Start 09/01/18 at 09:00; Stop 09/22/18 at 11:13; Status DC Pantoprazole Sodium (Protonix) 40 mg DAILYAC PO Last administered on 09/22/18 07:48; Start 09/01/18 at 07:30; Stop 09/22/18 at 11:13; Status DC Pravastatin Sodium (Pravachol) 40 mg QHS PO Last administered on 09/04/18at 2 0:12; Start 09/01/18 at 21:00; Stop 09/05/18 at 20:20; Status DC Multivitamins/ Minerals (I-Delgado) 1 tab DAILY PO Last administered on 09/22/18 07:49; Start 09/01/18 at 09:00; Stop 09/22/18 at 11:13; Status DC Trazodone HCl (Desyrel) 50 mg PRN QHS PRN PO INSOMNIA Last administered on 09/10/18at 00:23; Start 09/03/18 at 12:15; Stop 09/22/18 at 11:13; Status DC Atorvastatin Calcium (Lipitor) 10 mg QHS PO Last administered on 09/21/18 19:21; Start 09/05/18 at 21:00; Stop 09/22/18 at 11:13; Status DC Potassium Chloride (KCl Oral Soln) 20 meq DAILY PO Last administered on 09/22/18 07:48; Start 09/12/18 at 09:00; Stop 09/22/18 at 11:13; Status DC Olanzapine (ZyPREXA) 10 mg QHS PO Last administered on 09/21/18 19:21; Start 09/13/18 at 21:00; Stop 09/22/18 at 11:13; Status DC Fluoxetine HCl (PROzac) 10 mg DAILY PO Last administered on 09/22/18 07:49; Start 09/15/18 at 09:00; Stop 09/22/18 at 11:13; Status DC Active Scripts Active Reported Potassium Chloride 20 Meq Tablet.er 20 Meq PO DAILY Trazodone Hcl 50 Mg Tablet 50 Mg PO PRN QHS PRN Analgesic [place] (Methyl Salicylate/Menthol) 28 Gm Oint...g. 1 Marsha TP PRN QID PRN Milk Of Magnesia (Magnesium Hydroxide) 2,400 Mg/10 Ml Oral.susp 2,400 Mg PO PRN QHS PRN Mag-Al Plus Xs Suspension (Mag Hydrox/Al Hydrox/Simeth) 30 Ml Oral.susp 15 Ml PO PRN AFTMEALHC PRN Lisinopril 5 Mg Tablet 5 Mg PO DAILY Prozac (Fluoxetine Hcl) 10 Mg Capsule 10 Mg PO DAILY Atorvastatin Calcium 10 Mg Tablet 10 Mg PO QHS Tylenol (Acetaminophen) 325 Mg Tablet 650 Mg PO PRN Q6HRS PRN Olanzapine 10 Mg Tablet 10 Mg PO QHS Preservision Areds Softgel (Vit A/Vit C/Vit E/Zinc/Copper) 1 Each Capsule 1 Each PO DAILY Omeprazole 20 Mg Capsule.dr 20 Mg PO DAILY Metoprolol Succinate ( Xl ) (Metoprolol Succinate) 50 Mg Tab.er.24h 50 Mg PO BID Synthroid (Levothyroxine Sodium) 75 Mcg Tablet 75 Mcg PO DAILYAC Lomotil Tablet (Diphenoxylate Hcl/Atropine) 1 Each Tablet 1 Each PO PRN QID PRN Calcium Carbonate 500 Mg/5 Ml Oral.susp 1,250 Mg PO DAILYWSUP Trazodone Hcl 50 Mg Tablet 50 Mg PO QHS Alprazolam 0.25 Mg Tablet 0.25 Mg PO DAILY PRN I have reviewed the current psychotropics carefully including drug interactions. Risk benefit ratio favors no change other than as noted in my dictated progress note. Diagnosis: Problems: (1) Major depressive disorder, recurrent episode (2) Psychosis, atypical (3) Impulse control disorder (4) Dementia, vascular, with depression (5) Dementia, vascular, with delusions (6) Dementia in Alzheimer's disease with depression (7) Dementia in Alzheimer's disease with delusions (8) Anxiety disorder JULIAN OLMEDO MD September 22, 2018 18:41
--- NOTE | 2018-09-22 20:17 | PN ---
DATE: 09/20/2018 PSYCHIATRIC PROGRESS NOTE This late entry 09/20/2018 covers elements not covered in my initial note. SUBJECTIVE: I met with the patient in the evening. The patient slept 7-1/4 hours previous night. She states the auditory hallucinations are quieter. She is unable to make out any command hallucinations, but still hears music in the background, and can hear words, but nothing telling her to do anything. REVIEW OF SYSTEMS: Hard of hearing. No CV, , pulmonary, eye system symptoms on review. MENTAL STATUS EXAM: Oriented to herself and situation. Speech has some latency, coherent. Abstraction fair, computation impaired, language function intact, attention span short. Mood and affect remain somewhat withdrawn. LABORATORY DATA: Reviewed. IMPRESSION: Unchanged from initial note. PLAN: No change from initial note. MAN Kathy OLMEDO MD DR: PREETI/thomas JOB#: [id number] / [id number]
--- NOTE | 2018-09-22 21:53 | PN ---
DATE: 09/21/2018 PSYCHIATRIC PROGRESS NOTE This late entry 09/21/2018 covers elements not covered in my initial note. SUBJECTIVE: I met with the patient in the evening, staffed at treatment team meeting with the entire team in the morning. We reviewed her history at length. Prior to admission, she was having active command hallucinations at home, telling her to swallow her rings, which she was trying to do; telling her to undress, which she was responding to amongst many other things. All of this has subsided and she is having no command hallucinations and in fact cannot make out what the voices are saying. Slept 8-3/4 hours previous night. REVIEW OF SYSTEMS: Hard of hearing. No CV, , pulmonary, eye system symptoms on review. MENTAL STATUS EXAM: Oriented to herself and situation. Speech is coherent, pleasant, abstraction fair, computation impaired, language function intact, attention span short. Mood and affect is improved. LABORATORY DATA: Reviewed. IMPRESSION: Unchanged from initial note. PLAN: Transition home to outpatient treatment 09/22/2018. Rest unchanged. JULIAN OLMEDO MD DR: PREETI/thomas JOB#: [id number] / [id number]
--- NOTE | 2018-09-25 13:17 | DS ---
DATE OF DISCHARGE: 09/22/2018 DISCHARGE SUMMARY/PSYCHIATRIC PROGRESS NOTE This is a late entry of date of service of 09/22/2018, covers elements not covered in my initial note. SUBJECTIVE: I met with the patient individually. REASON FOR ADMISSION: Please refer to the admission history for details. Briefly, the patient is an 83-year-old female referred to us on account of worsening active hallucinations, hearing voices. She is responding to the command hallucinations, swallowing things as a response to this and attempting to swallow her rings. She is also undressing. Behaviors were deemed dangerous, had failed outpatient psychiatric intervention. She was increasingly confused, forgetful, and referred for inpatient psychiatric stabilization. SIGNIFICANT FINDINGS AND CLINICAL COURSE: Following admission, the patient was seen daily individually by myself from a psychiatric standpoint, medical followup per Dr. Dutton. The patient was having active hallucinations, some command hallucinations beyond what could be explained by her cochlear implants. She was also having insomnia. She is quite obsessive. Adjustments were made in her psychotropics initially by Dr. Smith, who was covering for me during my vacation and later when I returned and she seemed to respond to a combination of Zyprexa 10 mg at bedtime, Prozac was restarted since she has responded well to this in the past for her obsessive thought processes. Xanax was used p.r.n. and trazodone 50 mg at bedtime, may repeat x 2 for insomnia. REVIEW OF SYSTEMS: Prior to discharge on 09/22/2018, no CV, , pulmonary, eye system symptoms on review. MENTAL STATUS EXAM: Oriented to herself and situation. Speech has some latency, coherent. Abstraction fair, computation impaired, language function intact. Mood and affect. less withdrawn and hallucinations seemed to have significantly reduced and there were no command hallucinations. She was displaying no dangerous behaviors prior to discharge. FINAL DIAGNOSES: Major neurocognitive disorder, early Alzheimer, vascular with delusion, depression; anxiety disorder, unspecified; major depressive disorder, recurrent, in partial remission; OCD. Rest unchanged from admission. DISCHARGE MEDICATIONS: Please refer to the [facility]. Outpatient psychiatric and medical followup as arranged prior to discharge. The patient's psychotic symptoms appeared to be worsening her cognition and it will be imperative to see her level of cognition and to what extent it recovers once the psychosis completely subsides over the next 6-8 weeks as an outpatient. MAN Kathy OLMEDO MD DR: Angeline JOB#: [id number] / [id number]
== END 2018-09-22 11:12 | disposition home or self-care (01) | DRG 57 ==
LOC: ER 16:54 → GEROPSY 18:36
PROVIDERS: ADMIT Psychiatry & Neurology Psychiatry; ATTEND Psychiatry & Neurology Psychiatry
DX: G30.9 Alzheimer's disease, unspecified (principal); F01.51 Vascular dementia, unspecified severity, with behavioral disturbance; F33.9 Major depressive disorder, recurrent, unspecified; I10 Essential (primary) hypertension; E78.5 Hyperlipidemia, unspecified; K58.0 Irritable bowel syndrome with diarrhea; G47.00 Insomnia, unspecified; E03.9 Hypothyroidism, unspecified; K21.9 Gastro-esophageal reflux disease without esophagitis; F63.9 Impulse disorder, unspecified; F41.9 Anxiety disorder, unspecified; F02.80 Dementia in other diseases classified elsewhere, unspecified severity, without behavioral disturbance, psychotic disturbance, mood disturbance, and anxiety; H91.90 Unspecified hearing loss, unspecified ear; Z87.440 Personal history of urinary (tract) infections; Z86.73 Personal history of transient ischemic attack (TIA), and cerebral infarction without residual deficits; Z02.9 Encounter for administrative examinations, unspecified; Z79.899 Other long term (current) drug therapy; F42.9 Obsessive-compulsive disorder, unspecified
CPT/HCPCS: 36415; 70450; 80053; 80061; 81001; 82306; 83036; 83540; 83550; 83735; 84436; 84443; 85025; 85651; 86140; 87086; 93005; 97110; 97112; 97116; 97530; 97535; 99285-25